=== PATIENT | male | born 1940 | race Caucasian/White ===

== ENCOUNTER 2017-07-22 11:49 | Inpatient (IN) | payer BC, OTHER ==
[2017-07-22 12:31] LABS: PLATELET COUNT 161 10^3/uL (150-400)
[2017-07-22 12:45] LABS: INR 1.02 (0.83-1.16); PROTIME(PATIENT) 13.6 SEC (12.0-15.0)
--- NOTE | 2017-07-22 12:52 | EDPHY ---
H & P Stated Complaint: "wobbly" noted when awakened this morning/mumbling a bit/ Time Seen by Provider: 07/22/17 12:02 HPI/ROS: CHIEF COMPLAINT: Off balance HISTORY OF PRESENT ILLNESS: The patient presents to the ED after his has noticed that he has been off balance today. The patient has had some change in the character of his speech. She describes a slower softer speech pattern in the normal. The patient denies any acute headache, numbness or weakness. The patient has no prior history of stroke or TIA. The patient is not anticoagulated. He denies any fever, cough or congestion. He denies medication changes. The patient has no history of neck pain, trauma or chiropractic manipulation. REVIEW OF SYSTEMS: A comprehensive 10 point review of systems is otherwise negative aside from elements mentioned in the history of present illness. Source: Patient - Personal History Current Tetanus/Diphtheria Vaccine: Yes - Medical/Surgical History Hx Asthma: No Hx Chronic Respiratory Disease: No Hx Diabetes: No Hx Cardiac Disease: No Hx Renal Disease: No Hx Cirrhosis: No Hx Alcoholism: No Hx HIV/AIDS: No Hx Splenectomy or Spleen Trauma: No Other PMH: denies - Social History Smoking Status: Never smoked - Physical Exam Exam: General Appearance: Alert, no distress Eyes: Pupils equal and round no pallor or injection ENT, Mouth: Mucous membranes moist Respiratory: There are no retractions, lungs are clear to auscultation Cardiovascular: Regular rate and rhythm Gastrointestinal: Abdomen is soft and nontender, no masses, bowel sounds normal Neurological: Alert and oriented x4, 5/5 strength noted all 4 extremities, cranial nerves 2-12 intact, normal finger to nose, no pronator drift Skin: Warm and dry, no rashes Musculoskeletal: Neck is supple nontender Extremities: symmetrical, full range of motion Psychiatric: Patient is oriented X 3, there is no agitation Constitutional: Initial Vital Signs Temperature (C) 36.5 C 07/22/17 11:52 Heart Rate 65 07/22/17 11:52 Respiratory Rate 16 07/22/17 11:52 Blood Pressure 153/85 H 07/22/17 11:52 O2 Sat (%) 94 07/22/17 11:52 O2 Delivery Mode Room Air Allergies/Adverse Reactions: No Known Allergies Allergy (Unverified 07/22/17 11:52) Home Medications: Medication Instructions Recorded NK [No Known Home Meds] 07/22/17 Medical Decision Making - Diagnostics EKG Interpretation: EKG: Complete interpretation has been separately recorded in the [facility] archive. Summary impression: Sinus rhythm Imaging Results: CTA of the head and neck: No dissection, no flow limiting stenosis. Images reviewed by myself and discussed with Dr. Julian. Brain MRI: pending ED Course/Re-evaluation: The patient presents the ED after he woke up with acute neurologic symptoms today including mild gait imbalance as well as a change in the pattern of his speech. The patient has no prior history of stroke or TIA. The patient has a NIH stroke scale of 0-1 currently. He is not a candidate for tPA based upon the onset time of his symptoms and current stroke score. CTA demonstrates no evidence of a dissection or stenosis. I have ordered a brain MRI with is pending. Consultation was made with the hospitalist service. The patient will be admitted by Dr. Carvajal. Differential Diagnosis: Differential diagnosis considered includes stroke, TIA, carotid stenosis, atypical migraine, metabolic abnormality - Data Points Laboratory Results: Laboratory Results 07/22/17 12:09 07/22/17 12:09 Departure - Departure Disposition: [facility] Inpatient Acute Clinical Impression: Acute ischemic stroke Condition: Good
[2017-07-22] MEDS ORDERED: IOPAMIDOL (ISOVUE 370) 100 ML BTL IV ONE (13:01)
--- NOTE | 2017-07-22 13:59 | CPEKG ---
Heart Rate: 53 RR Interval: 1132 P-R Interval: 184 QRSD Interval: 86 QT Interval: 508 QTC Interval: 477 P [place]: 43 QRS [place]: 47 T Wave [place]: 71 EKG Severity - ABNORMAL ECG - EKG Impression: SINUS RHYTHM EKG Impression: BORDERLINE PROLONGED QT INTERVAL Electronically Signed By: Yonas Ramirez 22-Jul-2017 14:04:36
[2017-07-22] MEDS ORDERED: ONDANSETRON DISINTEGRATING 4 MG TAB PO PRN (16:53)
[2017-07-22] MEDS ORDERED: ONDANSETRON 4 MG/2 ML VIAL IVP PRN (16:53)
[2017-07-22] MEDS ORDERED: ACETAMINOPHEN 325 MG TAB PO PRN (16:53)
--- NOTE | 2017-07-22 17:22 | GHP ---
[f rep st] HISTORY AND PHYSICAL DATE OF ADMISSION: 07/22/2017 CHIEF COMPLAINT: Unsteadiness, speech abnormalities. HISTORY OF PRESENT ILLNESS: This is a 76-year-old male with no significant past medical history. He is quite healthy overall. He noted today that he was off balance and unable to ambulate as well. H is speech has also been softer and he has been mumbling some and not talking as much. He denies any headache. No focal weakness. No chest pain, shortness of breath. REVIEW OF SYSTEMS: 10-point Review of Systems obtained and other than noted has been negative. PAST MEDICAL HISTORY: None. MEDICATIONS: None. SOCIAL HISTORY: He is quite active, still working, . FAMILY HISTORY: No history of stroke. PHYSICAL EXAM: VITAL SIGNS: Afebrile, blood pressure is 159/81, heart rate 67, oxygen saturation 97 % on room air. GENERAL: Well developed, no apparent distress. HEENT: Nonicteric sclerae. Extraoc ular movements intact. Moist mucous membranes. NECK: Supple. No thyromegaly. LUNGS: Good effort . Clear to auscultation bilaterally. CARDIOVASCULAR: Regular rate and rhythm. No murmurs, rubs, o r gallops. ABDOMEN: Positive bowel sounds. Soft, nontender, nondistended. No hepatosplenomegaly. EXTREMITIES: No clubbing, cyanosis, or edema. SKIN: Without rash. Dry, intact. NEUROLOGIC: Amber rt and oriented x3. His speech is softer. Speaks in short answers. Left-sided fztjzq-kd-sloh is a little bit more unsteady. PSYCH: Normal mood and affect. LABS: CBC is normal. Coags are normal. Chemistry is normal. Urine is normal. EKG, personally rev iewed and interpreted, shows a normal sinus rhythm. No ischemic changes. Brain MRI showed an acute right basal ganglia CVA. Neck CTA does not show any carotid stenosis. ASSESSMENT: This is a 76-year-old male presenting with an acute basal ganglia cerebrovascular accide nt. PLAN: Patient will be admitted to telemetry. Will get an echocardiogram. We will have Neurology se e in the morning. He may be a good candidate for inpatient rehab and will have them evaluate as well . /[id number]/MODL
[2017-07-23] MEDS: ASPIRIN 81 MG CHEWABLE TAB PO SCH (07:41)
--- NOTE | 2017-07-23 09:46 | ASMTCASEMG ---
Living Arrangements What is your living Answers: With Spouse arrangement? Who do you live with? Type Of Residence What kind of residence do Answers: Condo/Townhouse you live in? Discharge Plan Comments Coordination Status Comments Notes: Patient is a 76yo male with no significant medical hx. who was admitted for acute basil ganglia cerebrovascular accident. His symptoms are unsteadiness and speech abnormalities. PT/OT/SPL/Inpatient rehab evals have been ordered. D/C needs TBD. CM will follow. Date Signed: 07/23/2017 09:45 AM Electronically Signed By:Mary Aguilar LCSW
--- NOTE | 2017-07-23 12:48 | NEUROPROG ---
Assessment: HOSPITAL NEUROLOGY CONSULT REQUESTING: Deana Carvajal MD REASON: stroke HPI: 76 year old left-handed man who presented to our ED on 07/22 after waking up feeling "off balance." Patient has no known medical history, but does not see a medical provider. Patient woke on the morning of admission feeling "off balance" and "wobbly." He does not attest to any focal weakness. His had noted some speech disturbance, like he was mumbling. On ED evaluation, he was found to have no focal deficit. CT head wo showed no acute changes. CTA head/neck showed nothing hemodynamically significant. He was admitted for further evaluation. MRI brain wo was ordered showing an acute infarct in the right basal ganglia extending superiorly, basically in the distribution of the lenticulostriates. He has not experienced any headache, LOC, adventitial movements, CP, palpitations, SOB. This morning he feels about the same. He is somewhat indifferent to his condition. He has no complaints. ROS: As per the HPI, otherwise a complete 12 point ROS was performed and is negative ALLERGIES AND MEDS: As recorded in the EMR - reviewed and reconciled PFSH: As per the intake H&P by Dr. Carvajal from 07/22 EXAM: VS reviewed in EMR GEN: WDWN laying in NAD HEENT: NCAT, sclera anicteric, conjunctiva not injected, MMM, oropharynx clear, no scalp tenderness NECK: supple, nontender, no meningismus CV: RRR s1 s2 wo m/r/c/g. Carotid pulses 2+ wo bruit NEURO: MS: awake, alert, oriented to all spheres. Speech with subtle flaccid dysarthria. No language disturbance. Follows commands. Attends to both sides. Recent/remote memory grossly intact. His mood is flat/withdrawn/ abulic. Good fund of knowledge. CN: pupils 3mm round and reactive. Fundi with sharp discs. VFF. Primary gaze with slightly depressed and abducted eye OD. Ptosis OD. Full ocular motility. Facial sensation preserved. Face symmetric, though when puffing cheeks he can 't keep a seal on the left. Hearing grossly intact to finger rub. Palatoglossal movements intact. Shoulder shrug and head turn strong. MOTOR: normal bulk/tone. No adventitial movements. Pronator drift in LUE. UMN pattern weakness in LUE/LLE - very subtle. SENSORY: symmetric LT/PP. No extinction. COORD: no ataxia FN/HS. Armen labored LUE. REFLEX: plantars equivocal. No clonus. DTRS 2/4 right, 2+/4 left. GAIT: deferred to PT safety eval DATA REVIEW: Labs reviewed in EMR LDL 95 A1c 5.1 TTE pending PERSONALLY INTERPRETED RESULTS AND DATA: CTA head/neck - calcific plaque right carotid bulb without any impingement on the lumen, patent intracranial vessels MRI brain wo - acute infarct in the right basal ganglia extending a bit superiorly - lenticulostriate distribution IMPRESSION AND RECOMMENDATIONS: // ACUTE ISCHEMIC STROKE // HLD Patient with acute ischemic stroke of the right lenticulostriate territory - larger than a typical lacune or megalacune. Could be from typical lipohyalinosis, but given size and distribution, I think a complete workup for cardioembolic source is warranted. - cont daily ASA - start statin for goal LDL < 70 - begin goal normotension - intervene for sustained SBPs > 160 - cont normoglycemia - A1c at goal < 6.5 - TTE pending - recommend some form of prolonged cardiac telemetry - either 30 day monitor vs. ILR - recommend cardiology consult for recommendations - PT/OT/MATCHING MACHINE OPERATOR evaluations - stroke education provided - we focused on activating EMS for any stroke-like symptoms - he will need to establish with a PCP immediately after discharge for vascular risk factor monitoring and optimization - followup neurology in 6 weeks - I will follow-up with patient and his tomorrow Objective: Vital Signs Temp Pulse Resp BP Pulse Ox 36.7 C 59 L 19 159/73 H 96 07/23/17 12:00 07/23/17 12:00 07/23/17 12:00 07/23/17 12:00 07/23/17 12:00 07/22/17 07/23/17 07/24/17 05:59 05:59 05:59 Intake Total 650 Balance 650 PT 13.6 SEC (12.0-15.0) 07/22/17 12:09 INR 1.02 (0.83-1.16) 07/22/17 12:09 Allergies/Adverse Reactions: No Known Allergies Allergy (Unverified 07/22/17 11:52)
--- NOTE | 2017-07-23 12:59 | HOSPPROG ---
Hospitalist Progress Note Assessment/Plan: This is a 76-year-old male new to my care on 07/23/17 presenting with: # acute right basal ganglia CVA with persistent left-sided weakness # dyslipidemia with low HDL # moderate calcified plaque right carotid bulb without encroachment upon the lumen Plan: -neurology consult is pending -start Lipitor 20 mg daily -video swallow ordered to evaluate for dysphagia -will send hypercoagulability panel Disposition: The patient will be changed to inpatient status since he continues to have residual deficit from his acute CVA. He will require aggressive rehab Subjective: Continues to have some left hand weakness. His speech is not back to baseline per his . Denies any new focal deficits. Objective: Vital Signs Temp Pulse Resp BP Pulse Ox 36.7 C 59 L 19 159/73 H 96 07/23/17 12:00 07/23/17 12:00 07/23/17 12:00 07/23/17 12:00 07/23/17 12:00 07/22/17 07/23/17 07/24/17 05:59 05:59 05:59 Intake Total 650 Balance 650 PT 13.6 SEC (12.0-15.0) 07/22/17 12:09 INR 1.02 (0.83-1.16) 07/22/17 12:09 - Physical Exam Constitutional: no apparent distress, appears nourished, not in pain Cardiovascular: regular rate and rhythym, no murmur, rub, or gallop Respiratory: no respiratory distress, no rales or rhonchi, clear to auscultation Gastrointestinal: normoactive bowel sounds, soft, non-tender abdomen, no palpable masses Neurologic: AAOx3, weakness (Muscle strength 4/5 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
[2017-07-23] MEDS: ATORVASTATIN CALCIUM 20 MG TAB PO SCH (13:13)
--- NOTE | 2017-07-23 15:18 | PDMN ---
Medical Necessity Medical necessity: M84 ischemic stroke -2 days- residual effects from ischemic stroke > 2 midnights ongoing med nec care and tx req.
--- NOTE | 2017-07-23 16:49 | ECHO ---
[email or web address] [address] [address] Main: [phone] Fax: Transthoracic Echocardiogram Name: LINO CHANDRA MR#: [id number] Study Date: 07/23/2017 Study Time: 10:26 AM Date of : 1940 Age: 76 year(s) Height: 175.3 cm (69 in.) Weight: 72.58 kg (160 lb.) BSA: 1.88 m2 Gender: Male Examination: Echo Indication: Ischemic stroke Image Quality: Contrast: Requested by: Deana Carvajal BP: 142 mmHg/77 mmHg Heart Rate: Rhythm: Indication: Ischemic stroke Procedure Staff Restaurant Delivery Driver: Kera Smith Reading Physician: Yusuf Kaplan Requesting Provider: Conclusions: Normal size left ventricle. No LV hypertrophy. Normal global systolic LV function. EF is 74 %. No regional wall motion abnormality. An agitated saline study was performed and was negative for intracardiac shunting. Trivial mitral valve regurgitation. The aortic valve is normal in appearance and function. Mild aortic valve regurgitation is present. Mild calcification of the NCC of the aortic valve.. The tricuspid valve is normal in appearance and function. Mild tricuspid regurgitation is present. Trivial to mild pulmonic valve regurgitation. Measurements: Chambers Valvular Assessment AV/MV Valvular Assessment TV/PV Normal Normal Normal Name Value Range Name Value Range Name Value Range IVSd (2D): 1.1 cm (0.6 cm-1.1 AV Vmax: 1.39 m/s (1 m/s-1.7 TR Vmax: 2.88 mm/s ( - ) cm) m/s) TR PGmax: 33 mmHg ( - ) LVDd (2D): 4.8 cm (4.2 cm-5.9 AV maxP mmHg ( - ) syst. PAP: 38 mmHg ( - ) cm) AR (PHT): 489 ms ( - ) LVDs (2D): 3.0 cm (2.1 cm-4 MV E Vmax: 0.52 m/s ( - ) cm) MV A Vmax: 0.72 m/s ( - ) LVPWd (2D): 0.7 cm (0.6 cm-1 MV E/A: 0.72 ( - ) cm) LVEF (MOD4): 74 % (>=55 %) Continued Measurements: Chambers Valvular Assessment AV/MV Valvular Assessment TV/PV Patient: LINO CHANDRA Study Date: 07/23/2017 Page 1 of 2 10:26 AM Name Value Name Value Name Value LADs: 3.4 cm MV E' Septal: 0.06 m/s CVP (est.): 5 mmHg LADs Lon.3 cm MV E/E' Septal: 9.10 LA Area: 14.6 cm2 MV E/E' Lateral: 7.10 AR Vmax: 4.29 cm/s Additional Vessels Name Value Ao Ascendin.5 cm Findings: Left Ventricle: Normal size left ventricle. No LV hypertrophy. Normal global systolic LV function. EF is 74 %. No regional wall motion abnormality. Right Ventricle: Normal size right ventricle. Left Atrium: The left atrium is normal in size. An agitated saline study was performed and was negative for intracardiac shunting. Right Atrium: The right atrium is normal in size. Mitral Valve: The mitral valve is normal in appearance and function. Trivial mitral valve regurgitation. Aortic Valve: The aortic valve is normal in appearance and function. Mild aortic valve regurgitation is present. Mild calcification of the NCC of the aortic valve.. Tricuspid Valve: The tricuspid valve is normal in appearance and function. Mild tricuspid regurgitation is present. Pulmonic Valve: The pulmonic valve is normal in appearance and function. Trivial to mild pulmonic valve regurgitation. Aorta: The aorta is normal. Pericardium: No pericardial effusion. (No Signature Object) Patient: LINO CHANDRA Study Date: 07/23/2017 Page 2 of 2 10:26 AM [id number]
[2017-07-24] MEDS: ASPIRIN 81 MG CHEWABLE TAB PO SCH (11:38)
[2017-07-24] MEDS: ATORVASTATIN CALCIUM 20 MG TAB PO SCH (11:38)
--- NOTE | 2017-07-24 12:39 | HOSPPROG ---
Hospitalist Progress Note Assessment/Plan: This is a 76-year-old male new to my care on 07/23/17 presenting with: # acute right basal ganglia CVA with persistent left-sided weakness # dyslipidemia with low HDL # moderate calcified plaque right carotid bulb without encroachment upon the lumen # dysphagia with aspiration of liquids on video swallow Plan: -neurology consult reviewed and appreciated -continue Lipitor 20 mg daily -cardiology consultation recommended by Neurology and will be called -hypercoagulability panel was sent and is pending Disposition: The patient will be changed to inpatient status since he continues to have residual deficit from his acute CVA. He will require aggressive rehab Subjective: States his left-sided weakness is improving. Denies any new deficits. Objective: Vital Signs Temp Pulse Resp BP Pulse Ox 36.7 C 60 18 127/82 H 92 07/24/17 12:10 07/24/17 12:10 07/24/17 12:10 07/24/17 12:10 07/24/17 12:10 07/23/17 07/24/17 07/25/17 05:59 05:59 05:59 Intake Total 300 Balance 300 PT 13.6 SEC (12.0-15.0) 07/22/17 12:09 INR 1.02 (0.83-1.16) 07/22/17 12:09 - Physical Exam Constitutional: no apparent distress, appears nourished, not in pain Cardiovascular: regular rate and rhythym, no murmur, rub, or gallop Respiratory: no respiratory distress, no rales or rhonchi, clear to auscultation Gastrointestinal: normoactive bowel sounds, soft, non-tender abdomen, no palpable masses, No guarding, No rebound Neurologic: AAOx3, weakness, pronator drift (Left-sided), facial droop (Left) ICD10 Worksheet Patient Problems: Problems Problem Status Onset Acute ischemic stroke Acute
--- NOTE | 2017-07-24 12:41 | NEUROPROG ---
Assessment: BACKGROUND: 07/23 76 year old left-handed man who presented to our ED on 07/22 after waking up feeling "off balance." Patient has no known medical history, but does not see a medical provider. Patient woke on the morning of admission feeling "off balance" and "wobbly." He does not attest to any focal weakness. His had noted some speech disturbance, like he was mumbling. On ED evaluation, he was found to have no focal deficit. CT head wo showed no acute changes. CTA head/neck showed nothing hemodynamically significant. He was admitted for further evaluation. MRI brain wo was ordered showing an acute infarct in the right basal ganglia extending superiorly, basically in the distribution of the lenticulostriates. He has not experienced any headache, LOC, adventitial movements, CP, palpitations, SOB. This morning he feels about the same. He is somewhat indifferent to his condition. He has no complaints. INTERVAL HISTORY: 07/24: Still with some left-sided weakness - stable. No new complaints. Long discussion with patient's today. EXAM: VS reviewed in EMR MS: awake, alert, oriented to all spheres. Speech with subtle flaccid dysarthria. No language disturbance. Follows commands. Attends to both sides. Recent/remote memory grossly intact. His mood is flat/withdrawn/ abulic. Good fund of knowledge. CN: pupils 3mm round and reactive. Fundi with sharp discs. VFF. Primary gaze with slightly depressed and abducted eye OD. Ptosis OD. Full ocular motility. Facial sensation preserved. Face symmetric, though when puffing cheeks he can 't keep a seal on the left. Hearing grossly intact to finger rub. Palatoglossal movements intact. Shoulder shrug and head turn strong. MOTOR: normal bulk/tone. No adventitial movements. Pronator drift in LUE. UMN pattern weakness in LUE/LLE - very subtle. SENSORY: symmetric LT/PP. No extinction. COORD: no ataxia FN/HS. Armen labored LUE. REFLEX: plantars equivocal. No clonus. DTRS 2/4 right, 2+/4 left. GAIT: deferred to PT safety eval DATA REVIEW: Labs reviewed in EMR LDL 95 A1c 5.1 TTE normal PERSONALLY INTERPRETED RESULTS AND DATA: CTA head/neck - calcific plaque right carotid bulb without any impingement on the lumen, patent intracranial vessels MRI brain wo - acute infarct in the right basal ganglia extending a bit superiorly - lenticulostriate distribution IMPRESSION AND RECOMMENDATIONS: // ACUTE ISCHEMIC STROKE // HLD Patient with acute ischemic stroke of the right lenticulostriate territory - larger than a typical lacune or megalacune. Could be from typical lipohyalinosis, but given size and distribution, I think a complete workup for cardioembolic source is warranted. Long discussion with patient's today, who had some minimal insight, wanting to just go forward using vegan diet as his main preventive strategy. We reviewed evidence-based stroke preventive measures in detail, as well as the recommended preventive strategy and followup plan. - cont daily ASA - statin for goal LDL < 70 - begin goal normotension - intervene for sustained SBPs > 160 - cont normoglycemia - A1c at goal < 6.5 - recommend some form of prolonged cardiac telemetry - either 30 day monitor vs. ILR - recommend cardiology consult for recommendations - PT/OT/CARPENTER AND JOINER evaluations - stroke education provided - we focused on activating EMS for any stroke-like symptoms - he will need to establish with a PCP immediately after discharge for vascular risk factor monitoring and optimization - followup neurology in 6 weeks 35 mins in direct patient care activities on the floor Objective: Vital Signs Temp Pulse Resp BP Pulse Ox 36.7 C 60 18 127/82 H 92 07/24/17 12:10 07/24/17 12:10 07/24/17 12:10 07/24/17 12:10 07/24/17 12:10 07/23/17 07/24/17 07/25/17 05:59 05:59 05:59 Intake Total 300 Balance 300 PT 13.6 SEC (12.0-15.0) 07/22/17 12:09 INR 1.02 (0.83-1.16) 07/22/17 12:09 Allergies/Adverse Reactions: No Known Allergies Allergy (Unverified 07/22/17 11:52)
[2017-07-24] MEDS ORDERED: LIDOCAINE 1% 300 MG/30 ML SDV SC ONE (16:06)
[2017-07-25] MEDS ORDERED: LIDOCAINE 1% 300 MG/30 ML SDV SC ONE (06:31)
[2017-07-25 07:36] VITALS: BP 118/75; PULSE 64; RESP 18; TEMP 98.2; O2SAT 93
[2017-07-25] MEDS ORDERED: ENOXAPARIN 40 MG/0.4 ML SYR SC SCH (09:00)
[2017-07-25] MEDS ORDERED: LIDOCAINE 1% 300 MG/30 ML SDV ONE (11:02)
--- NOTE | 2017-07-25 11:48 | SUROPNOTE ---
[facility] Operative Report - Surgery PROCEDURE: LINQ IMPLANT INDICATION: CRYPTOGENIC STROKE DETAILS: Consent was obtained for placement of the LINQ. Lidocaine (1%) was used for local anesthetic between 2nd and 4th intercostal spaces. Incision was made with a #12 blade and the provided blade was used for width and breath. The provided delivery rail system was then inserted without difficulty and the device was implanted without difficulty. Four mahnaz were used to close the pocket. Waveform analysis was performed with good morphology noted. Patient to follow up with cardiology in 5-7 days. No complications were appreciated.
[2017-07-25] MEDS: ATORVASTATIN CALCIUM 20 MG TAB PO SCH (13:04)
[2017-07-25] MEDS: ASPIRIN 81 MG CHEWABLE TAB PO SCH (13:04)
--- NOTE | 2017-07-25 13:53 | PDIAF ---
- Diagnosis Diagnosis: acute ischemic stroke Code Status: Full Code - Medication Management Discharge Medications: Medications to Continue on Transfer NK [No Known Home Meds] 07/22/17 [Last Taken Unknown] Discharge Medications: Refer to the Discharge Home Medication list for PRN reason. - Orders Services needed: Physical Therapy, Occupational Therapy, Speech Language Pathologist Diet Texture: Dysphagia 2 - Mechanically Altered - Chopped, Ground, Dysphagia 1 - Pureed, Honey Thick Liquids, Meds Whole in Puree, None - Follow Up Care Current Providers and Referrals: Swapna Taylor MD [Primary Care Provider] - As per Instructions Keith Toussaint DO [Doctor of Osteopathy] - (FU in 6 weeks)
--- NOTE | 2017-07-25 14:38 | GDS ---
[f rep st] DISCHARGE SUMMARY DISCHARGE DIAGNOSES: 1. Acute ischemic stroke of right lenticulostriate territory with persistent left-sided weakness. 2. Moderate calcified plaque of the right carotid bulb. 3. Dysphagia with aspiration of liquids. 4. Dyslipidemia with low HDL. HISTORY OF PRESENT ILLNESS: A 76-year-old male with no significant past medical history who presente d feeling off-balance. His speech was also softer than normal and noted some increased mumbling and not talking much. He did not have headache or focal weakness at time of admission. HOSPITAL COURSE BY PROBLEM: 1. Acute ischemic stroke: Has persistent left-sided weakness. CT showed an acute right basal gangl ia infarct without hemorrhage or mass effect. His blood pressures remain normal, goal is less than 1 60. He is on a statin and aspirin. He had a LINQ recorder placed today by Cardiology. PT, OT and hussain andre have been evaluating him here. He will be discharged to inpatient rehab for aggressive rehab. He will follow up with Neurology in 6 weeks. Echo showed normal left ventricular function and no int racardiac shunting. 2. Dysphagia: Secondary to acute stroke. Recommend dysphagia 1 diet. DISPOSITION: Patient is stable for discharge to inpatient rehab. MEDICATIONS: Aspirin 81 mg daily, atorvastatin 20 mg daily. FOLLOW UP: 1. Primary care physician. 2. Dr. Toussaint with Neurology in 6 weeks. PHYSICAL EXAM: VITAL SIGNS: Today, temperature 36.8, blood pressure 118/75, heart rate is 60, respi ration 18, 93% on room air. GENERAL: Well-appearing male sitting up in bed, in no acute distress. H EENT: PERRLA. EOMI. Ptosis over the right eye. Oropharynx clear. CV: Regular rate and rhythm. N o murmurs, gallops, or rubs. LUNGS: Clear to auscultation bilaterally. ABDOMEN: Soft, nontender, n ondistended. Positive bowel sounds. : No Carter. MUSCULOSKELETAL: Decreased strength upper and lo wer extremity on the left. PSYCHIATRIC: Alert, oriented x3. Flat affect. /[id number]/MODL
== END 2017-07-25 16:29 | DRG 42 ==
LOC: F2N 15:59 → OBSVTOIN 07-23 12:54 → F3N 07-24 13:51
PROVIDERS: ADMIT Internal Medicine; ATTEND Internal Medicine
PROC: 0JH602Z Insertion of Monitoring Device into Chest Subcutaneous Tissue and Fascia, Open Approach (ICD-10-PCS; principal; 2017-07-25)
DX: I63.8 Other cerebral infarction (principal); R29.701 NIHSS score 1; I65.21 Occlusion and stenosis of right carotid artery; E78.5 Hyperlipidemia, unspecified
CPT/HCPCS: 85300-90; 85303-90; 85306-90; 86147-90; 92526-GN; 92610-GN; 92611-GN; 97112-GO; 97112-GP; 97116-GP; 97161-GP; 97166-GO; 97530-GO; 97530-GP; 97535-GO; C1764; G0378; G8978-GP-CK; G8979-GP-CJ; G8987-GO-CK; G8988-GO-CJ; G8996-GN-CK; G8997-GN-CK; G8998-GN-CK; J1650; Q9967

== ENCOUNTER 2017-07-25 14:53 | Inpatient (IN) | payer BC, OTHER ==
[2017-07-25] MEDS ORDERED: ACETAMINOPHEN 325 MG TAB PO PRN (17:48)
--- NOTE | 2017-07-25 19:29 | PDOREHIP ---
Admission [facility] - Admission - 3 Day Assessment Period Admission Date/Day 1: 07/25/17 Day 2: 07/26/17 Day 3: 07/27/17 - Active Diagnoses Comorbidities and Co-existing Conditions at Admission: 95098. None of the Above - Skin Conditions Unhealed Pressure Ulcer (1 or more/Stage 1 or >)-Admission: 0. No
--- NOTE | 2017-07-25 19:34 | GHP ---
[f rep st] HISTORY AND PHYSICAL POST ADMISSION PHYSICIAN EVALUATION AND REHABILITATION TREATMENT PLAN DATE OF ADMISSION: 07/25/2017 DATE OF EVALUATION: 07/25/2017. TIME OF EVALUATION: 1830. REFERRING FACILITY: [facility]. REFERRING PHYSICIAN: Deana Carvajal MD IMPAIRMENT GROUP: 1.1. DATE OF ONSET: 05/22/2018 CONSULTING PHYSICIANS: He was seen in consultation by Neurology, Dr. Toussaint. REHABLITATION DIAGNOSIS: Cerebrovascular accident, right basal ganglia, with left-sided weakness and ataxia. ETIOLOGIC DIAGNOSIS: Left body involvement (right brain). HISTORY OF PRESENT ILLNESS: This patient was admitted to [facility] on 07/22/2017 with balance difficulties and changes in his speech. He had evaluation, initially with a CT angiogram of the head and the neck, which showed a calcific plaque in the right carotid bulb, which did not interfere with flow. He had a brain MRI, which showed an acute right basal ganglia cerebrovascular accident. On cardiac monitoring, he was in normal sinus rhythm. His echocardiogram was normal with no intracardiac shunt. Laboratory studies showed dyslipidemia, with a total cholesterol of 188, an LDL of 95, an HDL of 31, and triglycerides of 313. Further workup included hypercoagulable state; anticardiolipin antibodies were negative, and prothrombin genetic workup is still pending. He was found to have dysphagia. He was begun on aspirin and atorvastatin as well as enoxaparin for DVT prophylaxis. He was working with therapies, and appropriate for inpatient rehabilitation. He currently complains of lack of coordination in the left upper extremity. He is otherwise without any acute complaints. Other studies and labs during his stay: CBC was within normal limits. Coagulation studies revealed normal PT and INR. Protein C activity and protein S activity were normal. Antithrombin 3 activity was somewhat low, and factor V Leiden mutation tests are pending. Serum chemistry revealed normal renal function and electrolytes. His hemoglobin A1c was 5.1. Urinalysis was completely normal. Brain imaging is as above. PRECAUTIONS: He is a fall risk, and he has aspiration precautions. ACTIVE COMORBIDITIES: He has the tier 2 comorbidity of dysphagia. He otherwise has no active tier 1, tier 2 or tier 3 comorbidities. PAST MEDICAL HISTORY: He has been healthy. PAST SURGICAL HISTORY: He has not had any surgeries. PREHOSPITAL MEDICATIONS: He was not taking any medications. ADMISSION MEDICATIONS: 1. Enoxaparin 40 mg subcutaneously q. day. 2. Aspirin 81 mg p.o. q. day. 3. Atorvastatin 20 mg p.o. q. day. 4. Acetaminophen 650 mg p.o. q.4 hours p.r.n. ALLERGIES: There are no known drug allergies. FAMILY HISTORY: Noncontributory. PSYCHOSOCIAL HISTORY: He is . He lives with his . He has 2 adult daughters, 1 in [place] and 1 in [place], [place]. There are several steps to enter downstairs from the garage into the house. He is a nonsmoker. 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 REVIEW OF SYSTEMS: He denies pain, cough, dyspnea, chest pain, palpitations, nausea, vomiting, constipation, diarrhea, vision changes. He is not aware of difficulty swallowing, but he is noted to cough while eating. He is aware of weakness and difficulty coordinating his left upper extremity especially. He denies any change in sensation. There are no vision changes. There is no headache. Otherwise, a 10-point review of systems is negative. PHYSICAL EXAMINATION: VITAL SIGNS: Blood pressure is 117/73, heart rate is 75, respiratory rate is 14, oxygen saturation is 95% on room air, temperature is 36.9 degrees centigrade. His weight is 73.9 kg for a body mass index of 24.1. GENERAL: This is a well-nourished, well-developed man who appears his chronologic age, sitting up in a chair, eating dinner, cooperative and in no acute distress. HEENT: Extraocular movements are intact. Pupils are equal, round , and reactive to light. Mucous membranes are moist. Dentition is in good condition. NECK: Supple. HEART: There is a regular rate and rhythm with no murmurs, rubs, or gallops. LUNGS: Clear to auscultation bilaterally. ABDOMEN: Soft, nontender, nondistended with normoactive bowel sounds. No hepatosplenomegaly. EXTREMITIES: There is no cyanosis, clubbing, or edema. Radial and dorsalis pedis pulses are 2+ bilaterally. NEUROLOGIC: He is alert and oriented x3. Cranial nerves 2-12 are grossly intact but for a very subtle left facial droop. He coughs after eating or drinking with a food texture that is dysphagia 1. It is noted that the tea that he drinks does not appear to be thickened. He has marked ataxia of the left upper extremity. He has some weakness at the biceps, more so than other muscle groups. His hand nurse liaison and triceps extension and deltoid appear to be normal strength, but it takes him some time to develop full power. Otherwise, strength overall is 5/5. Sensation is intact to light touch. CURRENT LEVEL OF FUNCTION PER THE PRE-ADMISSION SCREEN: regarding diet, feeding , and swallowing. He is on dysphagia 1 texture with honey-thick liquids, and he is advised to have a limited bite size and controlled rate of intake. He has moderate to severe dysphagia. Regarding grooming, he required moderate assistance. Bathing required assistance. Dressing required assistance. Toileting required minimal assistance. He was continent of bowel and bladder. Bed mobility required assistance. Transfers required minimal assistance with contact guard and voice cues. Standing balance required minimal assistance. His endurance was good. He ambulated 150 feet with minimal assistance and voice cues to scan to the left. He was noted to have decreased ability on the left lower extremity and decreased attention to the left side. He would scuff his left foot in the forward swing, which got worse with fatigue. Regarding communication, it was noted to be impaired. He had deficits to attention and left neglect. Regarding cognition, it was noted to be impaired. He had deficits to impulse control, executive function and initiation. IMPRESSION: This is a 76-year-old man who suffered a cerebrovascular accident to the right basal ganglia, with consequences of dysphagia, left inattention, and left upper and lower extremity weakness and ataxia. Additionally, there are cognitive affects noted, but on exam today, these may be improving. Evaluation included laboratory studies with dyslipidemia and brain imaging findings as discussed in HPI. The stroke was considered to be possibly embolic due to its location and size. No source of embolus was found on echocardiogram, and there was no atrial fibrillation on tele monitoring in the hospital. A LINQ monitor has been placed to evaluate for occult atrial fibrillation. He was appropriately started on aspirin, as well as atorvastatin. He was medically stabilized and appropriate for inpatient rehabilitation. His goal is to complete a rehabilitation stay and then discharge home to his family and supportive services. He would also like to return to work. For a safe discharge, it is anticipated that he will be medically stable and tolerating the least restrictive diet. He will have improvements in executive function skills and attention and to be able to safely manage himself at home if left alone. He will have modified independence with eating, grooming, bed mobility, and transfers. He will be able to ambulate on level surfaces with the least restrictive device and likely with supervision on stairs. He may require supervision for dressing and assistance for bathing depending on his progress. He will likely require assistance for household management, shopping, and meal preparation. He will have therapy with physical therapy, occupational therapy, and speech and language pathology for 60 minutes per day on 5-7 days of the week. His expected duration of stay is 14-21 days. It is anticipated that upon discharge, he will continue to benefit from outpatient therapy, including occupational therapy, speech and language pathology, physical therapy and a stroke support group. PLAN: 1. Cerebrovascular accident, right basal ganglia, with left upper and lower extremity weakness and ataxia, as well as left hemineglect. PT and OT to optimize mobility and ADLs toward discharge home at the modified independence level. 2. Dysphagia and cognitive impairment. Continue dysphagia 1 diet with honey- thick liquids. Assessment and treatment per Speech and Language Pathology. 3. Dyslipidemia. He will have secondary stroke prophylaxis with atorvastatin with a goal LDL of less than 70. Followup lab testing can likely be done after his discharge. Additionally, continue aspirin for secondary stroke prophylaxis. 4. Possible occult atrial fibrillation. LINQ monitor has been placed, and he will follow up with Cardiology after his discharge. 5. Elevated blood pressures noted in the hospital but normalized at present. Monitor for elevated blood pressure. Initial goal is to maintain blood pressure less than 160 systolic and ultimately he should be normotensive. We will start medications if needed. 6. Prophylaxis. Continue enoxaparin. It is anticipated that he will soon recover ambulation with distances greater than 150 feet more often than 3 times a day, at which point enoxaparin can be discontinued. FOLLOWUP: He will follow up with Cardiology after discharge for interpretation of the LIMQ monitor and rule out occult atrial fibrillation. He will follow up with Neurology in approximately 6 weeks. He is to establish with a primary care provider who can continue evaluation and treatment for secondary stroke prophylaxis. /[id number]/MODL and [id number], 07/25/17, [address]
[2017-07-26] MEDS: ENOXAPARIN 40 MG/0.4 ML SYR SC SCH (08:18)
[2017-07-26] MEDS: ATORVASTATIN CALCIUM 20 MG TAB PO SCH (08:18)
[2017-07-26] MEDS: ASPIRIN 81 MG CHEWABLE TAB PO SCH (08:18)
[2017-07-26] MEDS ORDERED: BISACODYL 10 MG SUPP PR PRN (13:16)
[2017-07-26] MEDS ORDERED: LACTULOSE 20 GM/30 ML UDCUP PO PRN (13:16)
--- NOTE | 2017-07-26 18:03 | HOSPPROG ---
Hospitalist Progress Note Assessment/Plan: Assessment: 76 yo M p/w basal ganglia CVA resulting in left hemiparesis, dysphagia, ataxia Plan: # CVA. Bilateral basal ganglia, cryptogenic although likely 2/2 chronic microvascular ischemia - LDL 95 (goal 70), A1c 5.1% - cont ASA/statin - cont to monitor SBP - currently has cardiac rhythm monitor, will need outpt f/u (planning on f/u w/ Dr. Carvajal) - patient and want to consider alternative, nutritional therapies after this acute phase is stabilized, and I counseled them regarding importance of cont ASA/statin at present, f/u w/ provider re: event monitor (they may choose to see a provider w/ a more holistic focus, perhaps Dr. Layton Navarrete), and ongoing early work w/ therapies - cont aggressive PT/OT/HAND WELT BUTTER Diet. Regular PPx. High risk, cont lovenox Code. Full Dispo. Requiring ongoing therapy modalities Subjective: patient w/o pain, ongoing weakness Objective: Vital Signs Temp Pulse Resp BP Pulse Ox 36.7 C 67 14 107/72 93 07/26/17 07:51 07/26/17 07:51 07/26/17 07:51 07/26/17 07:51 07/26/17 07:51 07/25/17 07/26/17 07/27/17 05:59 05:59 05:59 Intake Total 630 Output Total 1 Balance 629 - Time Spent With Patient Time Spent with Patient: greater than 35 minutes Time Spent with Patient: Greater than 35 minutes spent on this patients care, greater than 50% of time spent counseling, educating, and coordinating care regarding the above mentioned plan. - Physical Exam Constitutional: no apparent distress, appears nourished, not in pain Cardiovascular: regular rate and rhythym, no murmur, rub, or gallop, No edema Respiratory: no respiratory distress, no rales or rhonchi, clear to auscultation Gastrointestinal: normoactive bowel sounds, soft, non-tender abdomen, no palpable masses Neurologic: AAOx3, sensation intact bilaterally, weakness (LUE/LLE paresis, worse distally), facial droop (left mouth/eyellid) Psychiatric: not anxious, not encephalopathic, flat affect, No agitated ICD10 Worksheet Patient Problems: Problems Problem Status Onset Acute ischemic stroke Acute
[2017-07-26] MEDS: SENNOSIDES/DOCUSATE SODIUM TAB PO SCH (20:09)
[2017-07-27] MEDS: SENNOSIDES/DOCUSATE SODIUM TAB PO SCH ×2 (08:37→19:51)
[2017-07-27] MEDS: ATORVASTATIN CALCIUM 20 MG TAB PO SCH (08:37)
[2017-07-27] MEDS: ENOXAPARIN 40 MG/0.4 ML SYR SC SCH (08:37)
[2017-07-27] MEDS: ASPIRIN 81 MG CHEWABLE TAB PO SCH (08:37)
--- NOTE | 2017-07-27 13:07 | HOSPPROG ---
Hospitalist Progress Note Assessment/Plan: Assessment: 76 yo M p/w basal ganglia CVA resulting in left hemiparesis, dysphagia, ataxia Plan: # CVA. Bilateral basal ganglia, cryptogenic although likely 2/2 chronic microvascular ischemia, paresis improving - LDL 95 (goal 70), A1c 5.1% - cont ASA/statin - cont to monitor SBP - currently has cardiac rhythm monitor, will need outpt f/u (planning on f/u w/ Dr. Carvajal) - patient and want to consider alternative, nutritional therapies after this acute phase is stabilized, and I counseled them regarding importance of cont ASA/statin at present, f/u w/ provider re: event monitor (they may choose to see a provider w/ a more holistic focus, perhaps Dr. 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 Regular PPx. High risk, cont lovenox Code. Full Dispo. Requiring ongoing therapy modalities Subjective: patient w/o any pain, moving bowels Objective: Vital Signs Temp Pulse Resp BP Pulse Ox 37.0 C 55 L 16 115/66 92 07/27/17 07:15 07/27/17 07:15 07/27/17 07:15 07/27/17 07:15 07/27/17 07:15 07/26/17 07/27/17 07/28/17 05:59 05:59 05:59 Intake Total 680 100 Output Total 1 Balance 679 100 - Physical Exam Constitutional: no apparent distress, appears nourished, not in pain Cardiovascular: regular rate and rhythym, no murmur, rub, or gallop, No edema Respiratory: no respiratory distress, no rales or rhonchi, clear to auscultation , No respiratory distress Gastrointestinal: normoactive bowel sounds, soft, non-tender abdomen, no palpable masses, No distension Neurologic: AAOx3, sensation intact bilaterally, weakness (mild dysmetria), facial droop (L mouth) Psychiatric: not anxious, not encephalopathic, thought process linear, flat affect, No agitated ICD10 Worksheet Patient Problems: Problems Problem Status Onset Acute ischemic stroke Acute
[2017-07-28] MEDS: ATORVASTATIN CALCIUM 20 MG TAB PO SCH (08:38)
[2017-07-28] MEDS: SENNOSIDES/DOCUSATE SODIUM TAB PO SCH ×2 (08:38→20:37)
[2017-07-28] MEDS: ENOXAPARIN 40 MG/0.4 ML SYR SC SCH (08:38)
[2017-07-28] MEDS: ASPIRIN 81 MG CHEWABLE TAB PO SCH (08:38)
[2017-07-28] MEDS: MAGNESIUM HYDROXIDE 30 ML UDCUP PO PRN (08:50)
--- NOTE | 2017-07-28 09:59 | SOAPPROG ---
SOAP Progress Note Assessment/Plan: Assessment: * Cerebrovascular accident, right basal ganglia, with left upper and lower extremity weakness and ataxia, as well as left hemineglect. * PT and OT to optimize mobility and ADLs toward discharge home at the modified independence level. * Dysphagia and cognitive impairment. * Reduced insight and safety awareness. * Continue dysphagia 1 diet with honey-thick liquids. * Continue Speech and Language Pathology. * Dyslipidemia. He will have secondary stroke prophylaxis with atorvastatin with a goal LDL of less than 70. Followup lab testing can likely be done after his discharge. Additionally, continue aspirin for secondary stroke prophylaxis. * Possible occult atrial fibrillation. LINQ monitor has been placed, and he will follow up with Cardiology after his discharge. * Elevated blood pressures noted in the hospital but normalized at present. * Normotensive so far on rehabilitation unit. * Prophylaxis. Continue enoxaparin. It is anticipated that he will soon recover ambulation with distances greater than 150 feet more often than 3 times a day, at which point enoxaparin can be discontinued. FOLLOWUP: He will follow up with Cardiology after discharge for interpretation of the LIMQ monitor and rule out occult atrial fibrillation. He will follow up with Neurology in approximately 6 weeks. He is to establish with a primary care provider who can continue evaluation and treatment for secondary stroke prophylaxis. 07/28/17 15:16 Subjective: No complaints. Not in pain. Thinks his left arm is doing better. Objective: Vital Signs Temp Pulse Resp BP Pulse Ox 36.5 C 56 L 18 128/75 H 98 07/27/17 19:36 07/28/17 08:00 07/28/17 08:00 07/28/17 08:00 07/28/17 08:00 07/27/17 07/28/17 07/29/17 05:59 05:59 05:59 Intake Total 680 678 240 Output Total 1 Balance 679 678 240 Physical Exam - Physical Exam General Appearance: WD/WN, alert, no apparent distress Respiratory: normal breath sounds, No crackles, No rhonchi, No wheezing Cardiac/Chest: regular rate, rhythm, No edema Skin: normal color, warm/dry Neuro/Psych: alert, normal mood/affect, oriented x 3, abnormal gait (Requiring contact guard assist per Physical therapy), motor weakness (Ataxia left upper extremity) ICD10 Worksheet Patient Problems: Problems Problem Status Onset Acute ischemic stroke Acute
[2017-07-28] MEDS: POLYETHYLENE GLYCOL 3350 17 GM PKT PO PRN (20:37)
[2017-07-29] MEDS: ATORVASTATIN CALCIUM 20 MG TAB PO SCH (08:44)
[2017-07-29] MEDS: ASPIRIN 81 MG CHEWABLE TAB PO SCH (08:44)
[2017-07-29] MEDS: SENNOSIDES/DOCUSATE SODIUM TAB PO SCH ×2 (08:45→20:54)
[2017-07-29] MEDS: ENOXAPARIN 40 MG/0.4 ML SYR SC SCH (08:45)
--- NOTE | 2017-07-29 10:21 | SOAPPROG ---
[facility] Progress Note Assessment/Plan: 76-year-old male with a basal ganglia stroke Today's update: Patient did not have any concerns, he was trying to be in touch with his employer regarding work. No urgent medical issues today, he feels that therapy is going well. Nursing reported that things are going fine for him today. A total of 25 min was spent on the floor in the care of the patient, the majority of which was spent in counseling and coordination of care regarding contacting his employer, counseling about avoiding work for now, and working with clinical social work therapist to be in touch with his employer as well. * Cerebrovascular accident, right basal ganglia, with left upper and lower extremity weakness and ataxia, as well as left hemineglect. * PT and OT to optimize mobility and ADLs toward discharge home at the modified independence level. * Dysphagia and cognitive impairment. * Reduced insight and safety awareness. * Continue dysphagia 1 diet with honey-thick liquids. * Continue Speech and Language Pathology. * Dyslipidemia. He will have secondary stroke prophylaxis with atorvastatin with a goal LDL of less than 70. Followup lab testing can likely be done after his discharge. Additionally, continue aspirin for secondary stroke prophylaxis. * Possible occult atrial fibrillation. LINQ monitor has been placed, and he will follow up with Cardiology after his discharge. * Elevated blood pressures noted in the hospital but normalized at present. * Normotensive so far on rehabilitation unit. * Prophylaxis. Continue enoxaparin. It is anticipated that he will soon recover ambulation with distances greater than 150 feet more often than 3 times a day, at which point enoxaparin can be discontinued. FOLLOWUP: He will follow up with Cardiology after discharge for interpretation of the LIMQ monitor and rule out occult atrial fibrillation. He will follow up with Neurology in approximately 6 weeks. He is to establish with a primary care provider who can continue evaluation and treatment for secondary stroke prophylaxis. 07/29/17 10:18 Subjective: Chief complaint: Patient's employment No acute events overnight. The patient is most concerned about his appointment today. Denies any shortness of breath or chest pain, no new numbness, tingling , or weakness. Denies any cough. He had is computer setup in his room and was attempting to catch up on work. Counseled him that he should take a break from that and be in touch with his employer regarding his condition. Also talked with social work about this. Objective: Vital Signs Temp Pulse Resp BP Pulse Ox 36.6 C 60 16 118/73 95 07/29/17 07:07 07/29/17 07:07 07/29/17 07:07 07/29/17 07:07 07/29/17 07:07 07/28/17 07/29/17 07/30/17 05:59 05:59 05:59 Intake Total 678 826 236 Balance 678 826 236 Physical Exam - Physical Exam General Appearance: alert, no apparent distress EENT: No scleral icterus (R), No scleral icterus (L) Respiratory: lungs clear, normal breath sounds, No respiratory distress, No accessory muscle use, No decreased breath sounds Cardiac/Chest: normal peripheral pulses, regular rate, rhythm Skin: normal color, warm/dry, No cyanosis, No diaphoresis Extremities: No pedal edema, No swelling Neuro/Psych: alert, normal mood/affect, other (Strength symmetric and upper limbs) ICD10 Worksheet Patient Problems: Problems Problem Status Onset Acute ischemic stroke Acute
[2017-07-30] MEDS: POLYETHYLENE GLYCOL 3350 17 GM PKT PO PRN (08:50)
[2017-07-30] MEDS: ATORVASTATIN CALCIUM 20 MG TAB PO SCH (08:51)
[2017-07-30] MEDS: ASPIRIN 81 MG CHEWABLE TAB PO SCH (08:51)
[2017-07-30] MEDS: SENNOSIDES/DOCUSATE SODIUM TAB PO SCH ×2 (08:51→20:37)
[2017-07-30] MEDS: ENOXAPARIN 40 MG/0.4 ML SYR SC SCH (08:52)
--- NOTE | 2017-07-30 12:04 | SOAPPROG ---
SOAP Progress Note Assessment/Plan: Assessment: * Cerebrovascular accident, right basal ganglia, with left upper and lower extremity weakness and ataxia, as well as left hemineglect. * Initial functional independence measure 81 on 07/30/2017. Standby assist for bed mobility, contact guard to standby assist for transfers, noted to be impulsive. Needs cues to scan to the left. Climbed 12 stairs with 1 rail; tends to catch he will of left leg on the step when going downstairs. Needs cues for use of the left upper extremity in grooming and hygiene. Needs assist for buttons. Needs minimal assist for upper body and lower body dressing. Bathing required contact guard assist. Has left neglect, left upper extremity weakness, and decreased proprioception. * Continue PT and OT to optimize mobility and ADLs toward discharge home at the modified independence level. * Dysphagia and cognitive impairment. * Reduced insight and safety awareness. * Oropharyngeal dysphagia. Takes large bites and has fast rate. Needs one-to- one supervision. Continue dysphagia 1 diet with honey-thick liquids. * Continue Speech and Language Pathology. * Dyslipidemia. He will have secondary stroke prophylaxis with atorvastatin with a goal LDL of less than 70. Followup lab testing can likely be done after his discharge. Additionally, continue aspirin for secondary stroke prophylaxis. * Possible occult atrial fibrillation. LINQ monitor has been placed, and he will follow up with Cardiology after his discharge. * Insertion site is clean, healing well. * Plan to remove mahnaz after 7 days, on 08/01/2017. * Elevated blood pressures noted in the hospital but normalized at present. * Normotensive so far on rehabilitation unit. * Prophylaxis. Continue enoxaparin. It is anticipated that he will soon recover ambulation with distances greater than 150 feet more often than 3 times a day, at which point enoxaparin can be discontinued. Attended staffing, 15 min. Discussed with case management specialist, dietitian, nursing, PT , OT, PHOSPHORIC ACID OPERATOR. [place] 20 [place] steps to enter. 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 Needs to be able to handle stairs safely for return to home. Tentative discharge date set for 08/13/2017. FOLLOWUP: He will follow up with Cardiology after discharge for interpretation of the LIMQ monitor and rule out occult atrial fibrillation. He will follow up with Neurology in approximately 6 weeks. He is to establish with a primary care provider who can continue evaluation and treatment for secondary stroke prophylaxis. 07/30/17 13:27 Subjective: No complaints this morning. Slept well, not in pain. Reports improved use of left hand. reports concern about LINQ monitor site. Objective: Vital Signs Temp Pulse Resp BP Pulse Ox 36.7 C 60 16 104/62 93 07/30/17 06:47 07/30/17 06:47 07/30/17 06:47 07/30/17 06:47 07/30/17 06:47 07/29/17 07/30/17 07/31/17 05:59 05:59 05:59 Intake Total 826 364 236 Balance 826 364 236 - Time Spent With Patient Time Spent With Patient: Greater than 5 min floor time today, including more than 50% of time in coordination of care during staffing meeting, and counseling patient. Physical Exam - Physical Exam General Appearance: WD/WN, alert, no apparent distress Respiratory: normal breath sounds, No crackles, No rhonchi, No wheezing Cardiac/Chest: regular rate, rhythm, No edema Skin: other (LINQ monitor site with 3 mahnaz closely together, no erythema, minimal eschar, no drainage on bandage.) Neuro/Psych: alert, normal mood/affect, oriented x 3, motor weakness (LUE ataxia ) ICD10 Worksheet Patient Problems: Problems Problem Status Onset Acute ischemic stroke Acute
[2017-07-31] MEDS: ENOXAPARIN 40 MG/0.4 ML SYR SC SCH (08:19)
[2017-07-31] MEDS: SENNOSIDES/DOCUSATE SODIUM TAB PO SCH ×2 (08:19→20:16)
[2017-07-31] MEDS: ATORVASTATIN CALCIUM 20 MG TAB PO SCH (08:19)
[2017-07-31] MEDS: ASPIRIN 81 MG CHEWABLE TAB PO SCH (08:19)
--- NOTE | 2017-07-31 10:28 | SOAPPROG ---
SOAP Progress Note Assessment/Plan: 76-year-old male with a basal ganglia stroke Today's update: Patient doing well, no new concerns. Continuing to monitor for neurological progress and he is doing well in this regard. Remainder of rehab plan below is relatively unchanged. * Cerebrovascular accident, right basal ganglia, with left upper and lower extremity weakness and ataxia, as well as left hemineglect. Impairments in mobility and self-care * Initial functional independence measure 81 on 07/30/2017. Standby assist for bed mobility, contact guard to standby assist for transfers, noted to be impulsive. Needs cues to scan to the left. Climbed 12 stairs with 1 rail; tends to catch he will of left leg on the step when going downstairs. Needs cues for use of the left upper extremity in grooming and hygiene. Needs assist for buttons. Needs minimal assist for upper body and lower body dressing. Bathing required contact guard assist. Has left neglect, left upper extremity weakness, and decreased proprioception. * Continue PT and OT to optimize mobility and ADLs toward discharge home at the modified independence level. * Dysphagia and cognitive impairment. * Reduced insight and safety awareness. * Oropharyngeal dysphagia. Takes large bites and has fast rate. Needs one-to- one supervision. Continue dysphagia 1 diet with honey-thick liquids. * Continue Speech and Language Pathology. * Dyslipidemia. He will have secondary stroke prophylaxis with atorvastatin with a goal LDL of less than 70. Followup lab testing can likely be done after his discharge. Additionally, continue aspirin for secondary stroke prophylaxis. * Possible occult atrial fibrillation. LINQ monitor has been placed, and he will follow up with Cardiology after his discharge. * Insertion site is clean, healing well. * Plan to remove mahnaz after 7 days, on 08/01/2017. * Elevated blood pressures noted in the hospital but normalized at present. * Normotensive so far on rehabilitation unit. * Prophylaxis. Continue enoxaparin. It is anticipated that he will soon recover ambulation with distances greater than 150 feet more often than 3 times a day, at which point enoxaparin can be discontinued. [place] 20 [place] steps to enter. 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 Needs to be able to handle stairs safely for return to home. Tentative discharge date set for 08/13/2017. FOLLOWUP: He will follow up with Cardiology after discharge for interpretation of the LIMQ monitor and rule out occult atrial fibrillation. He will follow up with Neurology in approximately 6 weeks. He is to establish with a primary care provider who can continue evaluation and treatment for secondary stroke prophylaxis. 07/30/17 13:27 07/29/17 10:18 07/31/17 10:26 Subjective: Chief complaint: Neurological progress No acute events overnight. Patient endorses that he continues to get stronger and his left handed particular, not noticing functional changes himself but feels that is stronger. No new shoes of breath or chest pain no new numbness, tingling, or weakness. No new concerns. He feels very positive and sees progress daily. Objective: Vital Signs Temp Pulse Resp BP Pulse Ox 36.6 C 72 16 113/88 H 94 07/31/17 08:00 07/31/17 08:00 07/31/17 08:00 07/31/17 08:00 07/31/17 08:00 07/30/17 07/31/17 08/01/17 05:59 05:59 05:59 Intake Total 364 666 332 Balance 364 666 332 Physical Exam - Physical Exam General Appearance: alert, no apparent distress Respiratory: lungs clear, normal breath sounds, No respiratory distress, No accessory muscle use Cardiac/Chest: normal peripheral pulses, regular rate, rhythm Skin: normal color, warm/dry, No cyanosis, No diaphoresis Extremities: No pedal edema, No swelling Neuro/Psych: alert, normal mood/affect ICD10 Worksheet Patient Problems: Problems Problem Status Onset Acute ischemic stroke Acute
[2017-08-01] MEDS: SENNOSIDES/DOCUSATE SODIUM TAB PO SCH ×2 (09:06→20:28)
[2017-08-01] MEDS: ASPIRIN 81 MG CHEWABLE TAB PO SCH (09:06)
[2017-08-01] MEDS: ENOXAPARIN 40 MG/0.4 ML SYR SC SCH (09:07)
[2017-08-01] MEDS: ATORVASTATIN CALCIUM 20 MG TAB PO SCH (09:07)
--- NOTE | 2017-08-01 13:57 | SOAPPROG ---
SOAP Progress Note Assessment/Plan: Assessment: * Cerebrovascular accident, right basal ganglia, with left upper and lower extremity weakness and ataxia, as well as left hemineglect. * Initial functional independence measure 81 on 07/30/2017. Standby assist for bed mobility, contact guard to standby assist for transfers, noted to be impulsive. Needs cues to scan to the left. Climbed 12 stairs with 1 rail; tends to catch the heel of left leg on the step when going downstairs. Needs cues for use of the left upper extremity in grooming and hygiene. Needs assist for buttons. Needs minimal assist for upper body and lower body dressing. Bathing required contact guard assist. Has left neglect, left upper extremity weakness, and decreased proprioception. * Continue PT and OT to optimize mobility and ADLs toward discharge home at the modified independence level. * Dysphagia and cognitive impairment. * Reduced insight and safety awareness. * Oropharyngeal dysphagia. Takes large bites and has fast rate. Needs one-to- one supervision. Continue dysphagia 1 diet with honey-thick liquids. * Continue Speech and Language Pathology. * Dyslipidemia. He will have secondary stroke prophylaxis with atorvastatin with a goal LDL of less than 70. Followup lab testing can likely be done after his discharge. Additionally, continue aspirin for secondary stroke prophylaxis. * Possible occult atrial fibrillation. LINQ monitor has been placed, and he will follow up with Cardiology after his discharge. * Insertion site is clean, healing well. * Plan to remove mahnaz after 7 days, on 08/01/2017. * Elevated blood pressures noted in the hospital but normalized at present. * Normotensive so far on rehabilitation unit. * Prophylaxis. Continue enoxaparin. It is anticipated that he will soon recover ambulation with distances greater than 150 feet more often than 3 times a day, at which point enoxaparin can be discontinued. [place] 20 [place] steps to enter. 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 Needs to be able to handle stairs safely for return to home. Tentative discharge date set for 08/13/2017. FOLLOWUP: He will follow up with Cardiology after discharge for interpretation of the LIMQ monitor and rule out occult atrial fibrillation. He will follow up with Neurology in approximately 6 weeks. He is to establish with a primary care provider who can continue evaluation and treatment for secondary stroke prophylaxis. 08/01/17 13:55 Subjective: No complaints. Sleeping well. Not in pain. No cough or dyspnea. Feels like he is improving in his use of his left arm and in his balance. Objective: Vital Signs Temp Pulse Resp BP Pulse Ox 36.5 C 62 16 113/69 94 08/01/17 06:49 08/01/17 06:49 08/01/17 06:49 08/01/17 06:49 08/01/17 06:49 07/31/17 08/01/17 08/02/17 05:59 05:59 05:59 Intake Total 666 570 220 Balance 666 570 220 Physical Exam - Physical Exam General Appearance: WD/WN, alert, no apparent distress Respiratory: No respiratory distress, No accessory muscle use Skin: normal color, warm/dry Neuro/Psych: alert, normal mood/affect, oriented x 3, abnormal gait (Working on tandem walking while balancing at the rail with PT), motor weakness (Left upper extremity ataxia) ICD10 Worksheet Patient Problems: Problems Problem Status Onset Acute ischemic stroke Acute
[2017-08-01] MEDS: MAGNESIUM HYDROXIDE 30 ML UDCUP PO PRN (16:03)
[2017-08-02] MEDS: ATORVASTATIN CALCIUM 20 MG TAB PO SCH (08:48)
[2017-08-02] MEDS: ASPIRIN 81 MG CHEWABLE TAB PO SCH (08:48)
[2017-08-02] MEDS: SENNOSIDES/DOCUSATE SODIUM TAB PO SCH ×2 (08:48→20:37)
--- NOTE | 2017-08-02 14:39 | SOAPPROG ---
SOAP Progress Note Assessment/Plan: Assessment: * Cerebrovascular accident, right basal ganglia, with left upper and lower extremity weakness and ataxia, as well as left hemineglect. * Initial functional independence measure 81 on 07/30/2017. Standby assist for bed mobility, contact guard to standby assist for transfers, noted to be impulsive. Needs cues to scan to the left. Climbed 12 stairs with 1 rail; tends to catch the heel of left leg on the step when going downstairs. Needs cues for use of the left upper extremity in grooming and hygiene. Needs assist for buttons. Needs minimal assist for upper body and lower body dressing. Bathing required contact guard assist. Has left neglect, left upper extremity weakness, and decreased proprioception. * Continue PT and OT to optimize mobility and ADLs toward discharge home at the modified independence level. * Dysphagia and cognitive impairment. * Reduced insight and safety awareness. * Oropharyngeal dysphagia. Takes large bites and has fast rate. Needs one-to- one supervision. Continue dysphagia 1 diet with honey-thick liquids. * Continue Speech and Language Pathology. * Dyslipidemia. He will have secondary stroke prophylaxis with atorvastatin with a goal LDL of less than 70. Followup lab testing can likely be done after his discharge. Additionally, continue aspirin for secondary stroke prophylaxis. * Possible occult atrial fibrillation. LINQ monitor has been placed, and he will follow up with Cardiology after his discharge. * Insertion site is clean, healing well. * Plan to remove mahnaz after 7 days, on 08/01/2017 - today * Elevated blood pressures noted in the hospital but normalized at present. * Normotensive so far on rehabilitation unit. * Prophylaxis. Continue enoxaparin. It is anticipated that he will soon recover ambulation with distances greater than 150 feet more often than 3 times a day, at which point enoxaparin can be discontinued. [place] 20 [place] steps to enter. 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 Needs to be able to handle stairs safely for return to home. Tentative discharge date set for 08/13/2017. FOLLOWUP: He will follow up with Cardiology after discharge for interpretation of the LIMQ monitor and rule out occult atrial fibrillation. He will follow up with Neurology in approximately 6 weeks. He is to establish with a primary care provider who can continue evaluation and treatment for secondary stroke prophylaxis. Plan: 08/02/17 14:39 Subjective: no new complaints Objective: Vital Signs Temp Pulse Resp BP Pulse Ox 36.6 C 62 18 119/66 92 08/02/17 05:06 08/02/17 05:06 08/02/17 05:06 08/02/17 05:06 08/02/17 05:06 08/01/17 08/02/17 08/03/17 05:59 05:59 05:59 Intake Total 570 420 480 Balance 570 420 480 Physical Exam - Physical Exam General Appearance: WD/WN, alert Respiratory: lungs clear, normal breath sounds Cardiac/Chest: regular rate, rhythm, No edema Neuro/Psych: alert, normal mood/affect ICD10 Worksheet Patient Problems: Problems Problem Status Onset Acute ischemic stroke Acute
[2017-08-03] MEDS: ATORVASTATIN CALCIUM 20 MG TAB PO SCH (07:16)
[2017-08-03] MEDS: SENNOSIDES/DOCUSATE SODIUM TAB PO SCH ×2 (07:16→21:13)
[2017-08-03] MEDS: ASPIRIN 81 MG CHEWABLE TAB PO SCH (07:16)
[2017-08-03] MEDS: FAMOTIDINE 20 MG TAB PO SCH (16:32)
--- NOTE | 2017-08-03 19:55 | HOSPPROG ---
Hospitalist Progress Note Assessment/Plan: Assessment: * Cerebrovascular accident, right basal ganglia, with left upper and lower extremity weakness and ataxia, as well as left hemineglect. * Initial functional independence measure 81 on 07/30/2017. Standby assist for bed mobility, contact guard to standby assist for transfers, noted to be impulsive. Needs cues to scan to the left. Climbed 12 stairs with 1 rail; tends to catch the heel of left leg on the step when going downstairs. Needs cues for use of the left upper extremity in grooming and hygiene. Needs assist for buttons. Needs minimal assist for upper body and lower body dressing. Bathing required contact guard assist. Has left neglect, left upper extremity weakness, and decreased proprioception. * Continue PT and OT to optimize mobility and ADLs toward discharge home at the modified independence level. * Dysphagia and cognitive impairment. * Reduced insight and safety awareness. * Oropharyngeal dysphagia. Takes large bites and has fast rate. Needs one-to- one supervision. Continue dysphagia 1 diet with honey-thick liquids. * Continue Speech and Language Pathology. * Dyslipidemia. He will have secondary stroke prophylaxis with atorvastatin with a goal LDL of less than 70. Followup lab testing can likely be done after his discharge. Additionally, continue aspirin for secondary stroke prophylaxis. * Possible occult atrial fibrillation. LINQ monitor has been placed, and he will follow up with Cardiology after his discharge. * Insertion site is clean, healing well. * JAKE REMOVED * Elevated blood pressures noted in the hospital but normalized at present. * Normotensive so far on rehabilitation unit. * Prophylaxis. Continue enoxaparin. It is anticipated that he will soon recover ambulation with distances greater than 150 feet more often than 3 times a day, at which point enoxaparin can be discontinued. [place] steps to enter. 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 Needs to be able to handle stairs safely for return to home. Tentative discharge date set for 08/13/2017. FOLLOWUP: He will follow up with Cardiology after discharge for interpretation of the LIMQ monitor and rule out occult atrial fibrillation. He will follow up with Neurology in approximately 6 weeks. He is to establish with a primary care provider who can continue evaluation and treatment for secondary stroke prophylaxis. Plan: 08/02/17 14:39 Subjective: No new complaints Objective: Vital Signs Temp Pulse Resp BP Pulse Ox 36.9 C 69 16 107/72 92 08/03/17 19:36 08/03/17 19:36 08/03/17 19:36 08/03/17 19:36 08/03/17 19:36 08/02/17 08/03/17 08/04/17 05:59 05:59 05:59 Intake Total 420 920 920 Balance 420 920 920 - Physical Exam Constitutional: no apparent distress, appears nourished, not in pain Cardiovascular: regular rate and rhythym, no murmur, rub, or gallop Respiratory: no respiratory distress Neurologic: AAOx3 Psychiatric: interacting appropriately, not anxious, not encephalopathic, thought process linear ICD10 Worksheet Patient Problems: Problems Problem Status Onset Acute ischemic stroke Acute
[2017-08-04] MEDS: FAMOTIDINE 20 MG TAB PO SCH (08:37)
[2017-08-04] MEDS: ASPIRIN 81 MG CHEWABLE TAB PO SCH (08:37)
[2017-08-04] MEDS: SENNOSIDES/DOCUSATE SODIUM TAB PO SCH ×2 (08:37→20:31)
[2017-08-04] MEDS: ATORVASTATIN CALCIUM 20 MG TAB PO SCH (08:37)
--- NOTE | 2017-08-04 09:58 | SOAPPROG ---
SOAP Progress Note Assessment/Plan: Assessment: * Cerebrovascular accident, right basal ganglia, with left upper and lower extremity weakness and ataxia, as well as left hemineglect. * Initial functional independence measure 81 on 07/30/2017. Standby assist for bed mobility, contact guard to standby assist for transfers, noted to be impulsive. Needs cues to scan to the left. Climbed 12 stairs with 1 rail; tends to catch the heel of left leg on the step when going downstairs. Needs cues for use of the left upper extremity in grooming and hygiene. Needs assist for buttons. Needs minimal assist for upper body and lower body dressing. Bathing required contact guard assist. Has left neglect, left upper extremity weakness, and decreased proprioception. * Mobility improving 08/04/2017 but continues to need CGA with gait belt for ambulation due to impulsivity and slowed balance reactions. * Continue PT and OT to optimize mobility and ADLs toward discharge home at the modified independence level. * Dysphagia and cognitive impairment. * Reduced insight and safety awareness. * Oropharyngeal dysphagia. Takes large bites and has fast rate. Needs one-to- one supervision. Continue dysphagia 1 diet with honey-thick liquids. * Continue Speech and Language Pathology. * Dyslipidemia. He will have secondary stroke prophylaxis with atorvastatin with a goal LDL of less than 70. Followup lab testing can likely be done after his discharge. Additionally, continue aspirin for secondary stroke prophylaxis. * Possible occult atrial fibrillation. LINQ monitor has been placed, and he will follow up with Cardiology after his discharge. * Insertion site is clean, healing well. * Williams removed 08/01/2017. * Hypercoagulable work-up was negative. * Elevated blood pressures noted in the hospital but normalized at present. * Normotensive so far on rehabilitation unit. * Prophylaxis. Ambulating greater than 500 ft. Hypercoagulable state evaluation was negative. No need for DVT prophylaxis.. [place] 20 [place] steps to enter. 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 Needs to be able to handle stairs safely for return to home. Tentative discharge date set for 08/13/2017. 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 FOLLOWUP: He will follow up with Cardiology after discharge for interpretation of the LINQ monitor and rule out occult atrial fibrillation. He will follow up with Neurology in approximately 6 weeks. He is to establish with a primary care provider who can continue evaluation and treatment for secondary stroke prophylaxis. 08/04/17 13:08 Subjective: No complaints. Slept well. not in pain. No cough or dyspnea. Objective: Vital Signs Temp Pulse Resp BP Pulse Ox 36.6 C 68 16 137/73 H 94 08/04/17 05:35 08/04/17 05:35 08/04/17 05:35 08/04/17 05:35 08/04/17 05:35 08/03/17 08/04/17 08/05/17 05:59 05:59 05:59 Intake Total 920 1160 236 Balance 920 1160 236 Physical Exam - Physical Exam General Appearance: WD/WN, alert, no apparent distress Neck: other (Mild L torticollis) Respiratory: normal breath sounds, No crackles, No rhonchi, No wheezing Cardiac/Chest: regular rate, rhythm, No diastolic murmur, No systolic murmur Skin: normal color, warm/dry Neuro/Psych: alert, normal mood/affect, oriented x 3, motor weakness (LUE apraxia.) ICD10 Worksheet Patient Problems: Problems Problem Status Onset Acute ischemic stroke Acute
[2017-08-05] MEDS: FAMOTIDINE 20 MG TAB PO SCH (08:09)
[2017-08-05] MEDS: ATORVASTATIN CALCIUM 20 MG TAB PO SCH (08:09)
[2017-08-05] MEDS: ASPIRIN 81 MG CHEWABLE TAB PO SCH (08:09)
[2017-08-05] MEDS: SENNOSIDES/DOCUSATE SODIUM TAB PO SCH ×2 (08:09→20:56)
--- NOTE | 2017-08-05 08:43 | SOAPPROG ---
SOAP Progress Note Assessment/Plan: 76-year-old male with a basal ganglia stroke Today's update: Patient doing well, declines trial of fluoxetine for stroke recovery. Mood is normal, affect is flat. Continue rehabilitation plan below * Cerebrovascular accident, right basal ganglia, with left upper and lower extremity weakness and ataxia, as well as left hemineglect. Impairments in mobility and self-care. * Initial functional independence measure 81 on 07/30/2017. Standby assist for bed mobility, contact guard to standby assist for transfers, noted to be impulsive. Needs cues to scan to the left. Climbed 12 stairs with 1 rail; tends to catch the heel of left leg on the step when going downstairs. Needs cues for use of the left upper extremity in grooming and hygiene. Needs assist for buttons. Needs minimal assist for upper body and lower body dressing. Bathing required contact guard assist. Has left neglect, left upper extremity weakness, and decreased proprioception. * Mobility improving 08/04/2017 but continues to need CGA with gait belt for ambulation due to impulsivity and slowed balance reactions. * Continue PT and OT to optimize mobility and ADLs toward discharge home at the modified independence level. * Declined trial of fluoxetine for stroke recovery * Dysphagia and cognitive impairment. * Reduced insight and safety awareness. * Oropharyngeal dysphagia. Takes large bites and has fast rate. Needs one-to- one supervision. Continue dysphagia 1 diet with honey-thick liquids. * Continue Speech and Language Pathology. * Dyslipidemia. He will have secondary stroke prophylaxis with atorvastatin with a goal LDL of less than 70. Followup lab testing can likely be done after his discharge. Additionally, continue aspirin for secondary stroke prophylaxis. * Possible occult atrial fibrillation. LINQ monitor has been placed, and he will follow up with Cardiology after his discharge. * Insertion site is clean, healing well. * [place] removed 08/01/2017. * Hypercoagulable work-up was negative. * Elevated blood pressures noted in the hospital but normalized at present. * Normotensive so far on rehabilitation unit. * Prophylaxis. Ambulating greater than 500 ft. Hypercoagulable state evaluation was negative. No need for DVT prophylaxis.. [place] 20 [place] steps to enter. 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 Needs to be able to handle stairs safely for return to home. Tentative discharge date set for 08/13/2017. Home PT, OT, CUSTOMER SPECIALIST. FOLLOWUP: He will follow up with Cardiology after discharge for interpretation of the LINQ monitor and rule out occult atrial fibrillation. He will follow up with Neurology in approximately 6 weeks. He is to establish with a primary care provider who can continue evaluation and treatment for secondary stroke prophylaxis. 07/30/17 13:27 07/29/17 10:18 07/31/17 10:26 08/05/17 08:42 08/05/17 09:22 Subjective: Chief complaint: Neural recovery No acute events overnight. Patient endorses that he has continued to make progress and therapies are going well. He states he is trying to avoid work and was reminded of the need to be cautious given his cognitive impairment. Discussed possible trial of fluoxetine with the patient for neural recovery and he declined. Answered questions. No new shortness of breath or chest pain, no new numbness, tingling, or weakness. Objective: Vital Signs Temp Pulse Resp BP Pulse Ox 37.1 C 59 L 16 108/81 H 92 08/04/17 19:54 08/04/17 19:54 08/04/17 19:54 08/04/17 19:54 08/04/17 19:54 08/04/17 08/05/17 08/06/17 05:59 05:59 05:59 Intake Total 1160 1404 Balance 1160 1404 Physical Exam - Physical Exam General Appearance: alert, no apparent distress EENT: No scleral icterus (R), No scleral icterus (L) Respiratory: No respiratory distress, No accessory muscle use Cardiac/Chest: normal peripheral pulses, regular rate, rhythm, No edema Skin: normal color, warm/dry, No cyanosis, No diaphoresis Extremities: non-tender, No pedal edema, No swelling Neuro/Psych: alert, No normal mood/affect (Mood was normal but affect was flat) ICD10 Worksheet Patient Problems: Problems Problem Status Onset Acute ischemic stroke Acute
[2017-08-06] MEDS: ATORVASTATIN CALCIUM 20 MG TAB PO SCH (09:54)
[2017-08-06] MEDS: ASPIRIN 81 MG CHEWABLE TAB PO SCH (09:54)
[2017-08-06] MEDS: SENNOSIDES/DOCUSATE SODIUM TAB PO SCH ×2 (09:54→20:44)
[2017-08-06] MEDS: FAMOTIDINE 20 MG TAB PO SCH (09:54)
--- NOTE | 2017-08-06 13:27 | SOAPPROG ---
SOAP Progress Note Assessment/Plan: Assessment: * Cerebrovascular accident, right basal ganglia, with left upper and lower extremity weakness and ataxia, as well as left hemineglect. * Initial functional independence measure 81 on 07/30/2017; improved to 88 as of 08/06/2017. Independent for bed mobility, standby assist for transfers, noted to be impulsive. Needs cues to scan to the left. Climbed 18 stairs with 1 rail ; tends to catch the heel of left leg on the step when going downstairs. Delayed balance reactions. Needs cues for use of the left upper extremity in grooming and hygiene. Standby assist for upper body and lower body dressing. Has left neglect, left upper extremity weakness, and decreased proprioception. * Continue PT and OT to optimize mobility and ADLs toward discharge home at the modified independence level. * Dysphagia and cognitive impairment. * Reduced insight and safety awareness. * Oropharyngeal dysphagia. Takes large bites and has fast rate. Needs one-to- one supervision. Advanced to dysphagia 2 diet with nectar-thick liquids. * Continue Speech and Language Pathology. * Dyslipidemia. He will have secondary stroke prophylaxis with atorvastatin with a goal LDL of less than 70. Followup lab testing can likely be done after his discharge. Additionally, continue aspirin for secondary stroke prophylaxis. * Possible occult atrial fibrillation. LINQ monitor has been placed, and he will follow up with Cardiology after his discharge. * Insertion site is clean, healing well. * [place] removed 08/01/2017. * Hypercoagulable work-up was negative. * Elevated blood pressures noted in the hospital. * Normotensive on rehabilitation unit. * Prophylaxis. Ambulating greater than 500 ft. Hypercoagulable state evaluation was negative. No need for DVT prophylaxis.. Attended staffing, 15 min. Discussed with case management, dietitian, nursing, PT, OT, MODERN AND CONTEMPORARY ART CURATOR. [place] 20 platform steps to enter. 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 Needs to be able to handle stairs safely for return to home. Tentative discharge date set for 08/12/2017. Home PT, OT, MODERN AND CONTEMPORARY ART CURATOR. Home visit tomorrow 2017. Attended family conference, 30 min. and daughter present. FOLLOWUP: He will follow up with Cardiology after discharge for interpretation of the LINQ monitor and rule out occult atrial fibrillation. He will follow up with Neurology in approximately 6 weeks. He is to establish with a primary care provider who can continue evaluation and treatment for secondary stroke prophylaxis. 08/04/17 13:08 08/06/17 13:23 Subjective: No complaints. Not in pain. Sleeping well. has questions regarding stroke prevention. Objective: Vital Signs Temp Pulse Resp BP Pulse Ox 36.4 C 73 15 114/77 94 08/06/17 07:11 08/06/17 07:11 08/06/17 07:11 08/06/17 07:11 08/06/17 07:11 08/05/17 08/06/17 08/07/17 05:59 05:59 05:59 Intake Total 1404 910 295 Balance 1404 910 295 - Time Spent With Patient Time Spent With Patient: Greater than 35 min floor time today, including more than 50% of time in coordination of care during staffing meeting, and extensive counseling during family conference. Physical Exam - Physical Exam General Appearance: WD/WN, alert, no apparent distress Respiratory: normal breath sounds, No crackles, No rhonchi, No wheezing Cardiac/Chest: regular rate, rhythm, No diastolic murmur, No systolic murmur, No extra beats Skin: normal color, warm/dry Neuro/Psych: alert, normal mood/affect, oriented x 3, motor weakness (Left upper extremity ataxia) ICD10 Worksheet Patient Problems: Problems Problem Status Onset Acute ischemic stroke Acute
[2017-08-07] MEDS: ASPIRIN 81 MG CHEWABLE TAB PO SCH (08:34)
[2017-08-07] MEDS: ATORVASTATIN CALCIUM 20 MG TAB PO SCH (08:34)
[2017-08-07] MEDS: SENNOSIDES/DOCUSATE SODIUM TAB PO SCH ×3 (08:34→20:59)
[2017-08-07] MEDS: FAMOTIDINE 20 MG TAB PO SCH (08:34)
--- NOTE | 2017-08-07 08:56 | SOAPPROG ---
[place] Progress Note Assessment/Plan: 76-year-old male with a basal ganglia stroke Today's update: Doing very well, therapy going well. Home visit today. Remainder of plan below is unchanged * Cerebrovascular accident, right basal ganglia, with left upper and lower extremity weakness and ataxia, as well as left hemineglect. * Initial functional independence measure 81 on 07/30/2017; improved to 88 as of 08/06/2017. Independent for bed mobility, standby assist for transfers, noted to be impulsive. Needs cues to scan to the left. Climbed 18 stairs with 1 rail ; tends to catch the heel of left leg on the step when going downstairs. Delayed balance reactions. Needs cues for use of the left upper extremity in grooming and hygiene. Standby assist for upper body and lower body dressing. Has left neglect, left upper extremity weakness, and decreased proprioception. * Continue PT and OT to optimize mobility and ADLs toward discharge home at the modified independence level. * Dysphagia and cognitive impairment. * Reduced insight and safety awareness. * Oropharyngeal dysphagia. Takes large bites and has fast rate. Needs one-to- one supervision. Advanced to dysphagia 2 diet with nectar-thick liquids. * Continue Speech and Language Pathology. * Dyslipidemia. He will have secondary stroke prophylaxis with atorvastatin with a goal LDL of less than 70. Followup lab testing can likely be done after his discharge. Additionally, continue aspirin for secondary stroke prophylaxis. * Possible occult atrial fibrillation. LINQ monitor has been placed, and he will follow up with Cardiology after his discharge. * Insertion site is clean, healing well. * [place] removed 08/01/2017. * Hypercoagulable work-up was negative. * Elevated blood pressures noted in the hospital. * Normotensive on rehabilitation unit. * Prophylaxis. Ambulating greater than 500 ft. Hypercoagulable state evaluation was negative. No need for DVT prophylaxis.. [place] 20 platform steps to enter. 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 Needs to be able to handle stairs safely for return to home. Tentative discharge date set for 08/12/2017. Home PT, OT, RECONDITIONING ASSOCIATE. Home visit tomorrow 08/07/2017. FOLLOWUP: He will follow up with Cardiology after discharge for interpretation of the LINQ monitor and rule out occult atrial fibrillation. He will follow up with Neurology in approximately 6 weeks. He is to establish with a primary care provider who can continue evaluation and treatment for secondary stroke prophylaxis. 07/30/17 13:27 07/29/17 10:18 07/31/17 10:26 08/05/17 08:42 08/05/17 09:22 08/07/17 08:53 Subjective: Chief complaint: Neurological progress No acute events overnight. Patient denies any new shortness of breath or chest pain, no new numbness, tingling, or weakness. He has a home visit today scheduled looking forward to it. He is also looking forward to discharge. Denies any cough with eating, overall feels good and has no new complaints. Objective: Vital Signs Temp Pulse Resp BP Pulse Ox 36.5 C 57 L 12 120/85 H 94 08/07/17 07:13 08/07/17 07:13 08/07/17 07:13 08/07/17 07:13 08/07/17 07:13 08/06/17 08/07/17 08/08/17 05:59 05:59 05:59 Intake Total 910 745 Balance 910 745 Physical Exam - Physical Exam General Appearance: alert, no apparent distress, thin EENT: No scleral icterus (R), No scleral icterus (L) Respiratory: No respiratory distress, No accessory muscle use Cardiac/Chest: normal peripheral pulses, regular rate, rhythm, No edema Skin: normal color, warm/dry, No cyanosis, No diaphoresis Extremities: No pedal edema, No swelling Neuro/Psych: alert, normal mood/affect ICD10 Worksheet Patient Problems: Problems Problem Status Onset Acute ischemic stroke Acute
[2017-08-08] MEDS: ASPIRIN 81 MG CHEWABLE TAB PO SCH (09:03)
[2017-08-08] MEDS: FAMOTIDINE 20 MG TAB PO SCH (09:03)
[2017-08-08] MEDS: ATORVASTATIN CALCIUM 20 MG TAB PO SCH (09:03)
[2017-08-08] MEDS: SENNOSIDES/DOCUSATE SODIUM TAB PO SCH ×2 (09:03→21:23)
--- NOTE | 2017-08-08 14:02 | SOAPPROG ---
SOAP Progress Note Assessment/Plan: Assessment: * Cerebrovascular accident, right basal ganglia, with left upper and lower extremity weakness and ataxia, as well as left hemineglect. * Initial functional independence measure 81 on 07/30/2017; improved to 88 as of 08/06/2017. Independent for bed mobility, standby assist for transfers, noted to be impulsive. Needs cues to scan to the left. Climbed 18 stairs with 1 rail ; tends to catch the heel of left leg on the step when going downstairs. Delayed balance reactions. Needs cues for use of the left upper extremity in grooming and hygiene. Standby assist for upper body and lower body dressing. Has left neglect, left upper extremity weakness, and decreased proprioception. * Continue PT and OT to optimize mobility and ADLs toward discharge home at the modified independence level. * Dysphagia and cognitive impairment. * Reduced insight and safety awareness. * Oropharyngeal dysphagia. Takes large bites and has fast rate. Needs one-to- one supervision. Advanced to dysphagia 2 diet with nectar-thick liquids. * Continue Speech and Language Pathology. * Dyslipidemia. He will have secondary stroke prophylaxis with atorvastatin with a goal LDL of less than 70. Followup lab testing can be done after his discharge. Additionally, continue aspirin for secondary stroke prophylaxis. * Possible occult atrial fibrillation. LINQ monitor has been placed, and he will follow up with Cardiology after his discharge. * Insertion site is clean, healing well. * [place] removed 08/01/2017. * Hypercoagulable work-up was negative. * Elevated blood pressures noted in the hospital. * Normotensive on rehabilitation unit. * Prophylaxis. Ambulating greater than 500 ft. Hypercoagulable state evaluation was negative. No need for DVT prophylaxis.. [place] 20 platform steps to enter. 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 Needs to be able to handle stairs safely for return to home. 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 Home visit 08/07/2017 went well and is able to assist on stairs in and out of the house. Discharge home with on 08/11/2017 FOLLOWUP: He will follow up with Cardiology after discharge for interpretation of the LINQ monitor and rule out occult atrial fibrillation. He will follow up with Neurology in approximately 6 weeks. He is to establish with a primary care provider who can continue evaluation and treatment for secondary stroke prophylaxis. 01/26/18 13:59 Subjective: No complaints. Slept well. Thinks left hand function is better. Says home visit went well including the 20 platform steps into and out of the house. Objective: Vital Signs Temp Pulse Resp BP Pulse Ox 36.4 C 59 L 14 134/84 H 98 08/08/17 07:10 08/08/17 07:10 08/08/17 07:10 08/08/17 07:10 08/08/17 07:10 08/07/17 08/08/17 08/09/17 05:59 05:59 05:59 Intake Total 745 476 472 Balance 745 476 472 Physical Exam - Physical Exam General Appearance: WD/WN, alert, no apparent distress Respiratory: No respiratory distress, No accessory muscle use Skin: normal color, warm/dry Neuro/Psych: alert, normal mood/affect, oriented x 3, motor weakness (Left hand ataxia) ICD10 Worksheet Patient Problems: Problems Problem Status Onset Acute ischemic stroke Acute
[2017-08-09] MEDS: SENNOSIDES/DOCUSATE SODIUM TAB PO SCH ×2 (08:32→19:33)
[2017-08-09] MEDS: ATORVASTATIN CALCIUM 20 MG TAB PO SCH (08:43)
[2017-08-09] MEDS: ASPIRIN 81 MG CHEWABLE TAB PO SCH (08:43)
--- NOTE | 2017-08-09 14:55 | SOAPPROG ---
SOAP Progress Note Assessment/Plan: Assessment: * Cerebrovascular accident, right basal ganglia, with left upper and lower extremity weakness and ataxia, as well as left hemineglect. * Initial functional independence measure 81 on 07/30/2017; improved to 88 as of 08/06/2017. Independent for bed mobility, standby assist for transfers, noted to be impulsive. Needs cues to scan to the left. Climbed 18 stairs with 1 rail ; tends to catch the heel of left leg on the step when going downstairs. Delayed balance reactions. Needs cues for use of the left upper extremity in grooming and hygiene. Standby assist for upper body and lower body dressing. Has left neglect, left upper extremity weakness, and decreased proprioception. * Continue PT and OT to optimize mobility and ADLs toward discharge home at the modified independence level. * Dysphagia and cognitive impairment. * Reduced insight and safety awareness. * Oropharyngeal dysphagia. Takes large bites and has fast rate. Needs one-to- one supervision. Advanced to dysphagia 2 diet with nectar-thick liquids. * Continue Speech and Language Pathology. * Dyslipidemia. He will have secondary stroke prophylaxis with atorvastatin with a goal LDL of less than 70. Followup lab testing can be done after his discharge. Additionally, continue aspirin for secondary stroke prophylaxis. * Possible occult atrial fibrillation. LINQ monitor has been placed, and he will follow up with Cardiology after his discharge. * Insertion site is clean, healing well. * [place] removed 08/01/2017. * Hypercoagulable work-up was negative. * Elevated blood pressures noted in the hospital. * Normotensive on rehabilitation unit. * Prophylaxis. Ambulating greater than 500 ft. Hypercoagulable state evaluation was negative. No need for DVT prophylaxis.. [place] 20 platform steps to enter. 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 Needs to be able to handle stairs safely for return to home. 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 Home visit 08/07/2017 went well and is able to assist on stairs in and out of the house. Discharge home with on 08/11/2017 FOLLOWUP: He will follow up with Cardiology after discharge for interpretation of the LINQ monitor and rule out occult atrial fibrillation. He will follow up with Neurology in approximately 6 weeks. He is to establish with a primary care provider who can continue evaluation and treatment for secondary stroke prophylaxis. Plan: Cont Dr San's rehab treatment plan 08/09/17 14:52 Subjective: In good spirits Eager to go home No F/C/CP/SOB/N/V/D/C Objective: Vital Signs Temp Pulse Resp BP Pulse Ox 36.6 C 63 17 137/85 H 95 08/09/17 07:14 08/09/17 07:14 08/09/17 07:14 08/09/17 07:14 08/09/17 07:14 08/08/17 08/09/17 08/10/17 05:59 05:59 05:59 Intake Total 476 828 472 Balance 476 828 472 Physical Exam - Physical Exam General Appearance: alert, no apparent distress Neck: supple Respiratory: lungs clear Cardiac/Chest: regular rate, rhythm Abdomen: normal bowel sounds Skin: normal color, warm/dry Lymphatic: inguinal node tender (R) Extremities: No pedal edema, No calf tenderness Neuro/Psych: alert, normal mood/affect, oriented x 3, motor weakness, sensory deficit, cognition abnormalities, other (No acute changes) ICD10 Worksheet Patient Problems: Problems Problem Status Onset Acute ischemic stroke Acute
[2017-08-09 21:29] VITALS: RESP 16
[2017-08-10] MEDS: SENNOSIDES/DOCUSATE SODIUM TAB PO SCH ×2 (07:48→20:06)
[2017-08-10] MEDS: ASPIRIN 81 MG CHEWABLE TAB PO SCH (07:48)
[2017-08-10] MEDS: ATORVASTATIN CALCIUM 20 MG TAB PO SCH (07:48)
--- NOTE | 2017-08-10 12:23 | SOAPPROG ---
SOAP Progress Note Assessment/Plan: Assessment: Weekend update: No Pain issues. Gaining strength and endurance. Still with limited fine motor control L hand, gross balance fair. * Cerebrovascular accident, right basal ganglia, with left upper and lower extremity weakness and ataxia, as well as left hemineglect. * Initial functional independence measure 81 on 07/30/2017; improved to 88 as of 08/06/2017. Independent for bed mobility, standby assist for transfers, noted to be impulsive. Needs cues to scan to the left. Climbed 18 stairs with 1 rail ; tends to catch the heel of left leg on the step when going downstairs. Delayed balance reactions. Needs cues for use of the left upper extremity in grooming and hygiene. Standby assist for upper body and lower body dressing. Has left neglect, left upper extremity weakness, and decreased proprioception. * Continue PT and OT to optimize mobility and ADLs toward discharge home at the modified independence level. * Dysphagia and cognitive impairment. * Reduced insight and safety awareness. * Oropharyngeal dysphagia. Takes large bites and has fast rate. Needs one-to- one supervision. Advanced to dysphagia 2 diet with nectar-thick liquids. * Continue Speech and Language Pathology. * Dyslipidemia. He will have secondary stroke prophylaxis with atorvastatin with a goal LDL of less than 70. Followup lab testing can be done after his discharge. Additionally, continue aspirin for secondary stroke prophylaxis. * Possible occult atrial fibrillation. LINQ monitor has been placed, and he will follow up with Cardiology after his discharge. * Insertion site is clean, healing well. * [place] removed 08/01/2017. * Hypercoagulable work-up was negative. * Elevated blood pressures noted in the hospital. * Normotensive on rehabilitation unit. * Prophylaxis. Ambulating greater than 500 ft. Hypercoagulable state evaluation was negative. No need for DVT prophylaxis.. [place] 20 [place] steps to enter. 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 Needs to be able to handle stairs safely for return to home. 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 Home visit 08/07/2017 went well and is able to assist on stairs in and out of the house. Discharge home with on 08/11/2017 FOLLOWUP: He will follow up with Cardiology after discharge for interpretation of the LINQ monitor and rule out occult atrial fibrillation. He will follow up with Neurology in approximately 6 weeks. He is to establish with a primary care provider who can continue evaluation and treatment for secondary stroke prophylaxis. Plan: Cont Dr San's rehab treatment plan 08/10/17 12:20 Subjective: No new problems or C/O's Denies F/C/CP/SOB/N/V/D/C Objective: Vital Signs Temp Pulse Resp BP Pulse Ox 36.6 C 66 16 133/74 H 93 08/10/17 07:43 08/10/17 07:43 08/10/17 07:43 08/10/17 07:43 08/10/17 07:43 08/09/17 08/10/17 08/11/17 05:59 05:59 05:59 Intake Total 828 472 Balance 828 472 Physical Exam - Physical Exam General Appearance: alert Respiratory: lungs clear Cardiac/Chest: regular rate, rhythm Skin: normal color, warm/dry Extremities: No pedal edema, No calf tenderness Neuro/Psych: alert, normal mood/affect, oriented x 3, abnormal gait, motor weakness, other (no acute changes) ICD10 Worksheet Patient Problems: Problems Problem Status Onset Acute ischemic stroke Acute
[2017-08-10 21:36] VITALS: O2SAT 94
[2017-08-11 07:19] VITALS: BP 112/68; PULSE 64; TEMP 97.7
[2017-08-11] MEDS: ATORVASTATIN CALCIUM 20 MG TAB PO SCH (08:28)
[2017-08-11] MEDS: SENNOSIDES/DOCUSATE SODIUM TAB PO SCH (08:28)
[2017-08-11] MEDS: ASPIRIN 81 MG CHEWABLE TAB PO SCH (08:28)
--- NOTE | 2017-08-11 15:42 | PDOREHIP ---
Admission [facility] - Admission - 3 Day Assessment Period Admission Date/Day 1: 07/25/17 Day 2: 07/26/17 Day 3: 07/27/17 Discharge [facility] - Discharge - 3 Day Assessment Period 2 Days Prior to Anticipated Discharge Date: 08/09/17 1 Day Prior to Anticipated Discharge Date: 08/10/17 Anticipated Discharge Date: 08/11/17 - Discharge Skin Conditions Unhealed Pressure Ulcer (1 or more/Stage 1 or >)-Discharge: 0. No
--- NOTE | 2017-08-11 20:40 | GDS ---
[f rep st] DISCHARGE SUMMARY DISCHARGE DIAGNOSIS: Cerebrovascular accident. DISCHARGE DIAGNOSIS: Cerebrovascular accident. OTHER DISCHARGE DIAGNOSIS: Possible occult atrial fibrillation. CONSULTATIONS: There were none. PROCEDURES: There were none. COMPLICATIONS: There were none. HISTORY AND HOSPITAL COURSE: This patient was admitted from [facility] where he had presented on 07/22/2017 with balance difficulties and changes in his speech. Brain MRI showed an acute right basal ganglia cerebrovascular accident. He was in normal sinus rhythm. Echocardiogram ruled out an intracardiac shunt. He had dyslipidemia. He was begun on aspirin and atorvastatin. Laboratory tests to rule out a hypercoagulable state were obtained and were negative. He was medically stabilized and working with therapy and transferred to inpatient rehabilitation. He made good progress in rehabilitation. Initially his functional independence measure was 81 on 07/30/2017, which is consistent with assisted living level of care. He improved to 88 as of 08/06/2017, which is still at the assisted living facility functional level. He had achieved independence for bed mobility and required standby assist for transfers. He needed cues to scan to the left. He was able to climb 18 stairs with 1 rail. He was noted to occasionally catch the heel of his left foot on the step when going down stairs. He had delayed balance reactions, which created a fall risk, though his Bryant Balance Inventory scored 53/56. Bryant does not test for dynamic balance , and his left neglect added to his safety risk. Additionally, he was noted to be impulsive. He had dysphagia. Diet was eventually advanced to dysphagia 2 with nectar thick liquids. He had one-to-one supervision with eating, as he was impulsive and would take large bites and eat at a fast rate. He had some cognitive impairment with reduced insight and reduced safety awareness. As the etiology of his stroke was cryptogenic, he had a LINQ monitor placed while he was in the hospital. The insertion site healed well and mahnaz were removed. There were no signs or symptoms of infection. He will follow up with Cardiology after his discharge. LABORATORY STUDIES: No laboratories or studies done during his stay. PHYSICAL EXAMINATION: VITAL SIGNS: On the day of discharge: Blood pressure is 112/68, heart rate is 64, respiratory rate is 16, oxygen saturation is 94% on room air. Temperature is 36.5 degrees centigrade. GENERAL: This is well- nourished, well-developed man, appearing chronologic age, sitting in a chair, working on a laptop computer. HEART: There is a regular rate and rhythm with no murmurs, rubs or gallops. LUNGS: Clear to auscultation bilaterally. ABDOMEN: Benign. EXTREMITIES: There is no edema. NEUROLOGIC: He is alert and oriented x3. Cranial nerves 2-12 are grossly intact. He has left upper extremity mild weakness and ataxia. Sensation is intact to light touch. CONDITION UPON DISCHARGE: Good. ACTIVITY: Ad nikia, but he needs assistance for safety with ambulation due to delayed balance reactions. DIET: Regular. Dysphagia-2 texture with nectar thick liquids. FOLLOWUP: Date of next appointment: He will follow up with [facility] in approximately 2 weeks regarding the LINQ monitor. He will follow up with neurologist, Dr. Toussaint, in approximately 2 weeks, and he will follow up with primary care provider, Dr. Swapna Taylor in approximately 2 weeks. MEDICATIONS AT DISCHARGE: 1. Aspirin 81 mg p.o. daily. 2. Acetaminophen 650 mg p.o. q.4 hours p.r.n. 3. Senna/docusate 1-2 tablets p.o. twice daily. 4. Polyethylene glycol 17 g p.o. daily. 5. Atorvastatin 20 mg p.o. daily. ISSUES TO BE ADDRESSED AT FOLLOWUP: 1. Functional status and safety: He will continue physical therapy and occupational therapy on an outpatient basis and can follow up with Neurologist Dr. Toussaint, as well as primary care provider Dr. Taylor regarding his progress. 2. Cognitive issues and dysphagia: He will continue outpatient speech and language pathology, and again can follow up with Neurology and primary care. 3. Rule out occult atrial fibrillation, as an etiology of stroke. Follow up with Cardiology regarding results of the LINQ monitor. Copy requested to: [facility] /[id number]/MODL MTDD
== END 2017-08-11 14:40 | disposition home or self-care (01) | DRG 57 ==
LOC: BREH 17:01
PROVIDERS: ADMIT Internal Medicine; ATTEND Internal Medicine
DX: I69.354 Hemiplegia and hemiparesis following cerebral infarction affecting left non-dominant side (principal); I69.391 Dysphagia following cerebral infarction; R13.10 Dysphagia, unspecified; I69.393 Ataxia following cerebral infarction; I69.310 Attention and concentration deficit following cerebral infarction; E78.5 Hyperlipidemia, unspecified; I48.91 Unspecified atrial fibrillation
CPT/HCPCS: 92507-GN; 92522-GN; 92526-GN; 92610-GN; 97110-GO; 97110-GP; 97112-GO; 97112-GP; 97116-GP; 97162-GP; 97166-GO; 97530-GO; 97530-GP; 97532-GO; 97535-GO; 99366-GO; J1650

== ENCOUNTER → 2018-04-06 | Outpatient (CLI) | payer BC | LOC: BMCIMAGING 07:21 | PROVIDERS: ATTEND Internal Medicine | DX: I25.10 Atherosclerotic heart disease of native coronary artery without angina pectoris (principal); I63.9 Cerebral infarction, unspecified ==

== ENCOUNTER → 2018-11-09 | Outpatient (CLI) | payer OTHER | LOC: BMCIMAGING 14:04 | PROVIDERS: ATTEND Nurse Practitioner Adult Health | DX: M25.511 Pain in right shoulder (principal) ==